=== PATIENT | male | born 1930 | race Caucasian/White ===

== ENCOUNTER 2017-01-27 14:03 | Outpatient (CLI) | payer MEDICARE, OTHER ==
[2016-04-05 09:26] VITALS: BP 160/83
[2017-01-27 14:22] LABS: BASOPHILS % 0.5 (0.0-1.5); EOSINOPHILS % 1.8 % (0.0-6.8); MEAN CORPUSCULAR HEMOGLOBIN 34.9 pg (28.0-34.0); MEAN CORPUSCULAR VOLUME 104.8 fl (80.0-100.0); MONOCYTES % 5.5 % (0.0-11.0)
[2017-01-27 14:48] LABS: eGFR (African) > 60; eGFR (Non-African) > 60
--- NOTE | 2017-01-27 20:32 | Diagnostic Imaging Report ---
SELENA FLOOD~ [facility] [address] [facility] [address] [place] [address]. [id number] ~ ~ ~ ~ Report Submission Date: Jan 27, 2017 3:12:43 PM CDT Patient ~ Study Name: SUSU SANTANA ~ Date: Jan 27, 2017 2:25:09 PM CDT ~ Modality Type: CR Gender: M ~ Description: CHEST : 31 ~ Institution: [facility] Physician: SELENA FLOOD ~ ~ ~ ~ 2 views of the chest History: CXR, ONGOING COUGH, SOA Comparison: July 20, 2016 Cardiomegaly with aortic calcification seen. Left chest wall pacemaker has its single lead terminating in the right ventricle Opacity at the right lung base is new which obscures the right hemidiaphragm. Pulmonary vascular congestion is present There is left basilar atelectasis /infiltrate Degenerative changes are noted at both the shoulders Impression: Cardiomegaly with pulmonary vascular congestion. Aortic calcification. New right basilar opacity suggestive of infiltrate/atelectasis with small right pleural effusion. Recommend followup to resolution. Left basilar atelectasis ~ Electronically signed on Jan 27, 2017 3:12:43 PM CDT by: Neelam WONG
== END 2017-01-27 14:04 ==
LOC: RAD 14:03
PROVIDERS: ATTEND Family Medicine
DX: K92.1 Melena (principal); R05 Cough
CPT/HCPCS: 71020; 80053; 85025

== ENCOUNTER 2017-02-25 14:20 | Outpatient (CLI) | payer MEDICARE, OTHER ==
[2016-04-05 09:26] VITALS: BP 160/83
[2017-02-25 14:37] LABS: eGFR (African) > 60; eGFR (Non-African) > 60
== END 2017-02-25 14:21 ==
LOC: LABRHC 14:20
PROVIDERS: ATTEND Family Medicine
DX: Z51.81 Encounter for therapeutic drug level monitoring (principal)
CPT/HCPCS: 80048

== ENCOUNTER 2017-05-14 18:20 | Emergency (ER) | payer MEDICARE, OTHER ==
[2017-05-14] MEDS ORDERED: 0.9 % SODIUM CHLORIDE 500 ML IV ONE ×2 (18:51→18:56)
--- NOTE | 2017-05-14 18:54 | ED Physician Documentation ---
General Adult - HISTORIAN Historian: patient, spouse - HPI Stated Complaint: low blood pressure Chief Complaint: General Adult Onset: hours Timing: better Severity: mild Further Comments: yes (Pt is an 87 yo male who had a low blood pressure reading at home, BP=92/56. Pt's says that pt had been complaining of weakness. Pt says he feels all right now, though he has been feeling tired.) - ROS CONST: weakness ("tired") EYES/ENT: none CVS/RESP: none GI/: none MS/SKIN/LYMPH: none - PAST HX Past History: other (AMI, cardiac stent, pacemaker, cholecystectomy, anemia, cancer, CHF, COPD, ) - SOCIAL HX Smoking History: non-smoker - FAMILY HX Family History: No - VITAL SIGNS Vital Signs: Vital Signs Temp Pulse Resp BP Pulse Ox 97.4 F L 64 16 108/52 99 05/14/17 18:20 05/14/17 18:20 05/14/17 18:20 05/14/17 18:20 05/14/17 18:20 - REVIEWED ASSESSMENTS Nursing Assessment Reviewed: Yes Vitals Reviewed: Yes <Lodnon George - Last Filed: 05/14/17 19:01> - PAST HX Past History: other Surgeries/Procedures: cholecystectomy, other (pacemaker) - VITAL SIGNS Vital Signs: Vital Signs Temp Pulse Resp BP Pulse Ox 97.4 F L 64 16 108/52 99 05/14/17 18:20 05/14/17 18:20 05/14/17 18:20 05/14/17 18:20 05/14/17 18:20 <Álvaro Cruz - Last Filed: 05/14/17 20:08> - PAST HX Allergies/Adverse Reactions: Allergies Allergy/AdvReac Type Severity Reaction Status Date / Time No Known Allergies Allergy Verified 05/14/17 18:30 Home Medications: Ambulatory Orders Medication Instructions Recorded Alendronate Sodium [Fosamax] 70 mg PO WEEK 01/01/13 Calcium Carb/Vit D3/Minerals 1 each PO TID 01/01/13 [Calcium 600 + D Tablet] Cyanocobalamin (Vitamin B-12) 2,500 mcg SL WEEK 01/01/13 [Vitamin B-12] Doxazosin Mesylate [Cardura Xl] 8 mg PO HS 01/01/13 Ferrous Sulfate [Iron] 325 mg PO DAILY 01/01/13 Folic Acid 1 mg PO DAILY 01/01/13 Methotrexate Sodium [Methotrexate] 4 tab PO WEEK 01/01/13 Pravastatin Sodium 20 mg PO DAILY 01/01/13 Warfarin Sodium [Coumadin] 5 mg PO DIRECTED 01/01/13 Cholestyramine (with Sugar) 4 gm PO BID 05/11/15 [Questran Packet] Losartan Potassium [Cozaar] 50 mg PO DAILY 05/11/15 Progress - Progress Progress: Care transferred to Dr. Cruz at 1900. <London George - Last Filed: 05/14/17 19:01> ED Results Lab/Radiology - Orders Orders: ED Orders Category Date Time Status 0.9 % Sodium Chloride [Normal Saline] 500 ml Med 05/14/17 18:51 Discontinued IV .STK-MED <London George - Last Filed: 05/14/17 19:01> - Orders Orders: ED Orders Category Date Time Status Place IV Lock 1T Care 05/14/17 18:56 Active BNP [NT-proBNP] Stat Lab 05/14/17 19:01 Received CBC/PLATELET/DIFF Routine Lab 05/14/17 19:01 Received CMP Routine Lab 05/14/17 19:01 Received 0.9 % Sodium Chloride [Normal Saline] 500 ml Med 05/14/17 18:51 Discontinued IV .STK-MED 0.9 % Sodium Chloride [Normal Saline] 500 ml Med 05/14/17 18:56 Active IV NOW <Álvaro Cruz - Last Filed: 05/14/17 20:08> General Adult Physical Exam - PHYSICAL EXAM GENERAL APPEARANCE: no distress EENT: pharynx normal NECK: normal inspection, supple RESPIRATORY: no resp distress, chest non-tender, breath sounds normal CVS: reg rate & rhythm, heart sounds normal ABDOMEN: soft, no organomegaly, normal bowel sounds BACK: normal inspection, no CVA tenderness SKIN: warm/dry, normal color EXTREMITIES: non-tender, normal range of motion, no evidence of injury NEURO: oriented X3, motor nml, sensation nml <London George - Last Filed: 05/14/17 19:01> Discharge <London George - Last Filed: 05/14/17 19:01> Decision to Admit: NO Date of Decison to Admit: 05/14/17 Decision Time: 19:36 <Álvaro Cruz - Last Filed: 05/14/17 20:08> Clincal Impression: Hypotension Referrals: Juwan Campos MD [Primary Care Provider] - 2 Days Additional Instructions: Continue with home meds. Continue to monitor blood pressure. If the top number gets into the 80s callprimary care provider or bring to the Emergency room. Condition: Stable Disposition: 01 HOME, SELF-CARE
[2017-05-14 19:24] LABS: eGFR (African) > 60; eGFR (Non-African) > 60
[2017-05-14 19:26] LABS: BASOPHILS % 0.5 (0.0-1.5); EOSINOPHILS % 1.2 % (0.0-6.8); MEAN CORPUSCULAR HEMOGLOBIN 33.5 pg (28.0-34.0); MONOCYTES % 3.2 % (0.0-11.0); NEUTROPHILS # 3.4 # k/uL (1.4-7.7)
[2017-05-14 19:50] VITALS: BP 105/58
== END 2017-05-14 19:45 | disposition home or self-care (01) ==
LOC: ED 18:20
DX: I95.9 Hypotension, unspecified (principal)
CPT/HCPCS: 80053; 83880; 85025; J7060; 96360; 99283; S1016

== ENCOUNTER 2017-05-17 10:29 | Inpatient (IN) | payer MEDICARE, OTHER ==
--- NOTE | 2017-05-17 10:38 | ED Physician Documentation ---
General Adult - HISTORIAN Historian: patient - HPI Stated Complaint: dizziness Chief Complaint: Dizziness (and low back pain ) Onset: days ago (2) Timing: still present Severity: mild Modifying Factors: none noted moving seems to make him dizzy Further Comments: no Last known Well Code/Unknown Code: Unknown - ROS CONST: no problems. denies: fever, chills EYES/ENT: none CVS/RESP: none GI/: none NEURO/PSYCH: dizziness. denies: headache, tingling, numbness - PAST HX Past History: other (skin cancer, hip pain, hypotension, CHF (chronic) bronchitis ) Other History: none Surgeries/Procedures: other (cholecstectomy, pacemaker ) Immunizations: referred to PCP - SOCIAL HX Smoking History: non-smoker Alcohol Use: none Drug Use: none - FAMILY HX Family History: Yes - VITAL SIGNS Vital Signs: Vital Signs Temp Pulse Resp BP Pulse Ox 105/58 05/14/17 19:45 - REVIEWED ASSESSMENTS Nursing Assessment Reviewed: Yes Vitals Reviewed: Yes <Cady Sheth - Last Filed: 05/17/17 12:34> - VITAL SIGNS Vital Signs: Vital Signs Temp Pulse Resp BP Pulse Ox 97.6 F 69 18 111/67 98 05/18/17 07:49 05/18/17 07:49 05/18/17 07:49 05/18/17 07:49 05/18/17 07:49 <Álvaro Cruz - Last Filed: 05/18/17 09:31> - PAST HX Allergies/Adverse Reactions: Allergies Allergy/AdvReac Type Severity Reaction Status Date / Time No Known Allergies Allergy Verified 05/17/17 10:59 Home Medications: Ambulatory Orders Medication Instructions Recorded Acetaminophen [Tylenol] 650 mg PO BID 05/17/17 Alendronate Sodium [Fosamax] 50 mg PO WEEK 05/17/17 Calcium Carb 500/Vit D 200 1 each PO BID 05/17/17 [Caltrate with Vit D] Cholestyramine (with Sugar) 4 gm PO 1119 PRN 05/17/17 [Questran] Cyanocobalamin (Vitamin B-12) 2,500 mcg SL WEEK 05/17/17 [Vitamin B12] Doxazosin Mesylate [Cardura] 8 mg PO DAILY 05/17/17 Ferrous Sulfate [Feosol] 325 mg PO 1100 05/17/17 Folic Acid [Folvite] 1 mg PO DAILY 05/17/17 Furosemide [Lasix] 40 mg PO 14 05/17/17 Furosemide [Lasix] 80 mg PO DAILY 05/17/17 Lactase [Lac-Dose] 2 tab PO BID 05/17/17 Losartan Potassium [Cozaar] 50 mg PO DAILY 05/17/17 Methotrexate Sodium [Rheumatrex] 2.5 mg PO WEEK 05/17/17 Metolazone [Zaroxolyn] 5 mg PO QD 05/17/17 Metoprolol Tartrate [Lopressor] 25 mg PO BID 05/17/17 Omeprazole [Prilosec] 20 mg PO 0700 05/17/17 Potassium Chloride [Klor-Con M20] 20 meq PO DAILY 05/17/17 Pravastatin Sodium [Pravachol] 20 mg PO HS 05/17/17 Tramadol HCl [Ultram] 50 mg PO BID 05/17/17 Warfarin Sodium [Coumadin] 5 mg PO 1800 05/17/17 Progress - Progress Progress: Patient was seen and evaluated by me. I agree with the assessment and plan for this patient. <Álvaro Cruz - Last Filed: 05/18/17 09:31> ED Results Lab/Radiology - Lab Results Lab Results: reviewed Discussed with Patient - Radiology Radiology Impressions: Examination: PA and lateral chest. History: Evaluate lung haskins. Comparison exam: 27 January 2017 Findings: PA lateral chest demonstrates a prominent cardiac silhouette. Mild tortuosity of the thoracic aorta with vascular calcification by the aortic arch. Left-sided cardiac pacemaker. Mild parenchymal fullness involving the right hilum and left lung base. No blunting of the right costophrenic margin. Osseous structures are appropriate for age. Impression: Mild right hilar and left base hazy infiltrates. Electronically signed on May 17, 2017 11:33:01 AM CDT by: Zeferino Sharif <Cady Sheth - Last Filed: 05/17/17 12:34> - Lab Results Lab Results: Lab Results 05/17/17 05/17/17 05/17/17 11:25 11:25 11:25 WBC RBC Hgb Hct MCV MCH MCHC RDW Plt Count Neut % (Auto) Lymph % (Auto) [place] % (Auto) Eos % (Auto) Baso % (Auto) Neut # (Auto) Lymph # (Auto) [place] # (Auto) Eos # (Auto) Baso # (Auto) Reactive Lymphs % Reactive Lymphs # PT 32.1 Seconds H Seconds (9.4-11.6) INR 3.03 H (0.9-1.2) Sodium 144 mmol/L mmol/L (136-145) Potassium 3.7 mmol/L mmol/L (3.5-5.0) Chloride 103 mmol/L mmol/L (98-110) Carbon Dioxide 36 mmol/L H mmol/L (20-32) BUN 39 mg/dL H mg/dL (10-26) Creatinine 1.0 mg/dL mg/dL (0.4-1.5) Estimated Creat Clear 52 Est GFR ( Amer) > 60 (60 - ) Est GFR (Non-Af Amer) > 60 (60 - ) Glucose 104 mg/dL H mg/dL (70-99) Calcium 8.8 mg/dL mg/dL (8.5-10.5) Troponin I < 0.03 ng/mL L ng/mL (0.03-0.06) 05/17/17 11:25 WBC 6.80 K/ul K/ul (4.00-12.00) RBC 3.41 M/ul L M/ul (3.90-5.20) Hgb 11.5 g/dL L g/dL (12.0-18.0) Hct 33.5 % L % (37.0-53.0) MCV 98.4 fl fl (80.0-100.0) MCH 33.6 pg pg (28.0-34.0) MCHC 34.2 g/dL g/dL (30.0-36.0) RDW 14.5 % H % (11.3-14.3) Plt Count 97 K/mm3 L K/mm3 (130-400) Neut % (Auto) 71.2 % % (39.0-79.0) Lymph % (Auto) 21.0 % % (16.0-50.0) [place] % (Auto) 4.0 % % (0.0-11.0) Eos % (Auto) 2.3 % % (0.0-6.8) Baso % (Auto) 0.4 (0.0-1.5) Neut # (Auto) 4.9 # k/uL # k/uL (1.4-7.7) Lymph # (Auto) 1.4 # k/uL # k/uL (0.6-4.0) [place] # (Auto) 0.3 # k/uL # k/uL (0.0-0.9) Eos # (Auto) 0.2 # k/uL # k/uL (0.0-0.6) Baso # (Auto) 0.0 # k/uL # k/uL (0.0-0.5) Reactive Lymphs % 1.0 % % (0.0-5.0) Reactive Lymphs # 0.1 # k/uL # k/uL (0.0-0.8) PT INR Sodium Potassium Chloride Carbon Dioxide BUN Creatinine Estimated Creat Clear Est GFR ( Amer) Est GFR (Non-Af Amer) Glucose Calcium Troponin I - Orders Orders: ED Orders Category Date Time Status IV Started NOW Care 05/17/17 10:55 Completed CHEST P.A.&LAT 2 VIEWS [RAD] Stat Exams 05/17/17 Completed BLOOD CULTURE Stat Lab 05/17/17 12:00 Received BMP [BMP] Routine Lab 05/17/17 11:25 Completed CBC/PLATELET/DIFF Routine Lab 05/17/17 11:25 Completed PT-INR Routine Lab 05/17/17 11:25 Completed TROPONIN I (cTnI) Stat Lab 05/17/17 11:25 Completed 0.9 % Sodium Chloride [Normal Saline] 1,000 ml Med 05/17/17 10:53 Discontinued IV DAILY Azithromycin [Zithromax] 500 mg Med 05/17/17 12:24 Discontinued 0.9 % Sodium Chloride [Sodium Chloride] 250 ml IV NOW cefTRIAXone SODIUM [Rocephin] 1 gm Med 05/17/17 13:00 Active 0.9 % Sodium Chloride [Sodium Chloride] 50 ml IV QD Oxygen Daily Oxygen 05/17/17 12:30 Ordered EKG WITH COMPARISON Stat Ther 05/17/17 Completed <Álvaro Cruz - Last Filed: 05/18/17 09:31> General Adult Physical Exam - PHYSICAL EXAM GENERAL APPEARANCE: no distress EENT: eye inspection normal, ENT inspection normal NECK: normal inspection RESPIRATORY: no resp distress, chest non-tender, breath sounds normal CVS: reg rate & rhythm, heart sounds normal ABDOMEN: soft, no organomegaly, normal bowel sounds SKIN: warm/dry EXTREMITIES: non-tender NEURO: oriented X3 <Cady Sheth - Last Filed: 05/17/17 12:34> Discharge Decision to Admit: [id number] Date of Decison to Admit: 05/17/17 Decision Time: 12:36 <Cady Sheth - Last Filed: 05/17/17 12:34> <Álvaro Cruz - Last Filed: 05/18/17 09:31> Clincal Impression: Pneumonia Qualifiers: Pneumonia type: due to unspecified organism Laterality: left Lung location: lower lobe of lung Qualified Code(s): J18.1 - Lobar pneumonia, unspecified organism Condition: Stable Disposition: 09 ADMITTED INPATIENT
[2017-05-17] MEDS ORDERED: 0.9 % SODIUM CHLORIDE 1,000 ML IV ONE (10:53)
[2017-05-17 11:31] LABS: BASOPHILS % 0.4 (0.0-1.5); EOSINOPHILS % 2.3 % (0.0-6.8); MEAN CORPUSCULAR HEMOGLOBIN 33.6 pg (28.0-34.0); MEAN CORPUSCULAR VOLUME 98.4 fl (80.0-100.0); NEUTROPHILS # 4.9 # k/uL (1.4-7.7)
[2017-05-17 11:46] LABS: eGFR (African) > 60; eGFR (Non-African) > 60
[2017-05-17] MEDS ORDERED: AZITHROMYCIN 500 MG in 0.9 % SODIUM CHLORIDE 250 ML IV ONE (12:24)
[2017-05-17] MEDS ORDERED: WARFARIN SODIUM 5 MG TABLET PO SCH (13:00)
[2017-05-17] MEDS: DOXAZOSIN MESYLATE 2 MG TABLET PO SCH ×2 (14:20→21:08)
[2017-05-17] MEDS: PANTOPRAZOLE SODIUM 40 MG TABLET PO SCH (14:20)
[2017-05-17] MEDS ORDERED: FUROSEMIDE 40 MG TABLET PO ONE (14:35)
[2017-05-17] MEDS ORDERED: SALINE FLUSH 10 ML DISP.SYRIN IVF ONE (16:05)
--- NOTE | 2017-05-17 16:31 | Diagnostic Imaging Report ---
LETA LAI~ [facility] [address] [facility] [address] [place], [place]. [address] ~ ~ ~ ~ Report Submission Date: May 17, 2017 11:33:01 AM CDT Patient ~ Study Name: SUSU SANTANA ~ Date: May 17, 2017 11:05:19 AM CDT ~ Modality Type: CR Gender: M ~ Description: CHEST : 31 ~ Institution: [facility] Physician: LETA LAI ~ ~ ~ ~ Examination: PA and lateral chest. History: Evaluate lung haskins. Comparison exam: 27 January 2017 Findings: PA lateral chest demonstrates a prominent cardiac silhouette. Mild tortuosity of the thoracic aorta with vascular calcification by the aortic arch. Left-sided cardiac pacemaker. Mild parenchymal fullness involving the right hilum and left lung base. No blunting of the right costophrenic margin. Osseous structures are appropriate for age. Impression: Mild right hilar and left base hazy infiltrates. ~ Electronically signed on May 17, 2017 11:33:01 AM CDT by: Zeefrino WONG
[2017-05-17] MEDS: IPRATROPIUM/ALBUTEROL SULFATE 3 ML AMPUL.NEB NEB SCH ×3 (16:32→21:48)
[2017-05-17] MEDS: cefTRIAXone SODIUM 1 GM in 0.9 % SODIUM CHLORIDE 50 ML IV SCH (17:21)
[2017-05-17] MEDS: WARFARIN SODIUM 5 MG TABLET PO SCH (17:22)
[2017-05-17 18:55] VITALS: BMI 21.7
[2017-05-17] MEDS ORDERED: FUROSEMIDE 40 MG TABLET PO SCH (21:00)
[2017-05-17] MEDS: METOPROLOL TARTRATE 50 MG TABLET PO SCH (21:09)
[2017-05-17] MEDS: CITALOPRAM HYDROBROMIDE 20 MG TABLET PO SCH (21:14)
[2017-05-18] MEDS ORDERED: PRAVASTATIN SODIUM 20 MG TABLET ONE (00:47)
[2017-05-18] MEDS ORDERED: LOSARTAN POTASSIUM 50 MG TABLET PO ONE (00:48)
[2017-05-18] MEDS: IPRATROPIUM/ALBUTEROL SULFATE 3 ML AMPUL.NEB NEB SCH ×7 (01:00→23:22)
[2017-05-18] MEDS: FUROSEMIDE 40 MG TABLET PO SCH ×3 (06:21→13:25)
[2017-05-18] MEDS: PANTOPRAZOLE SODIUM 40 MG TABLET PO SCH ×2 (06:21→06:26)
[2017-05-18 07:02] LABS: BASOPHILS % 0.7 (0.0-1.5); EOSINOPHILS % 1.4 % (0.0-6.8); MEAN CORPUSCULAR HEMOGLOBIN 33.5 pg (28.0-34.0); MEAN CORPUSCULAR VOLUME 96.4 fl (80.0-100.0); MONOCYTES % 3.5 % (0.0-11.0); NEUTROPHILS # 4.6 # k/uL (1.4-7.7)
[2017-05-18] MEDS ORDERED: FUROSEMIDE 40 MG TABLET PO SCH (07:14)
[2017-05-18] MEDS: LOSARTAN POTASSIUM 50 MG TABLET PO SCH (07:47)
[2017-05-18] MEDS: METOPROLOL TARTRATE 50 MG TABLET PO SCH ×2 (07:47→20:21)
[2017-05-18] MEDS: PRAVASTATIN SODIUM 20 MG TABLET PO SCH (07:48)
[2017-05-18] MEDS: CITALOPRAM HYDROBROMIDE 20 MG TABLET PO SCH (07:48)
--- NOTE | 2017-05-18 08:24 | History and Physical Report ---
CHIEF COMPLAINT: 1. Hypotension. 2. Generalized weakness. 3. Pneumonia. HISTORY OF PRESENT ILLNESS: This is an 87-year-old male who I actually saw in the office yesterday because of malaise and generally not feeling very well. His laboratory evaluation yesterday was essentially unremarkable. His labs were reviewed from the day previous when he was in the emergency department and they were essentially stable. I did stop his Metolazone yesterday because of his hypotension. He woke up this morning and was very, very hypotensive with a systolic in the 50s. As a result, Sarah, his , called the ambulance and he was brought to the emergency room for an evaluation. There he was noted to have bibasilar infiltrates on a chest x-ray. His blood pressure had actually rebounded into the one-teen's over 60s and that is where they are at this point. His pulse oximetry is 100% on 2 liters. He is on chronic oxygen therapy. His weight has stabilized since yesterday but he is down about 20 pounds in the last couple of months. PAST MEDICAL HISTORY: 1. History of chronic anemia. 2. Cardiomyopathy with an ejection fraction in the 20% to 30% range. 3. Chronic congestive heart failure. 4. Coronary arteriosclerosis with a stent placed several years ago. 5. Chronic hypoxia. 6. Weight loss. 7. Depression. PAST SURGICAL HISTORY: 1. Cholecystectomy. 2. Pacemaker placement. 3. PCI with stent. CURRENT MEDICATIONS: 1. Lasix 40 mg b.i.d. 2. Lactulose 10 mg per 15 mL and 30 mL daily. 3. Prilosec 20 mg daily. 4. Warfarin, which he has been on 7.5 mg. We decreased that to 5 mg, as I suspect his INR is going to go up with antibiotic therapy. This is managed by Dr. Rodriguez for his cardiomyopathy. 5. Tramadol 50 mg p.o. b.i.d. p.r.n. pain. 6. Questran 4 grams p.o. b.i.d. 7. Cozaar 50 mg p.o. daily. 8. Metoprolol 25 mg p.o. b.i.d. 9. Fosamax 70 mg weekly. 10. Calcium with vitamin D 1 p.o. b.i.d. 11. Mervat, although we are going to hold that at this point. 12. Iron sulfate 325 mg p.o. daily. 13. Folic acid 1 mg p.o. daily. 14. Methotrexate 2.5 mg weekly. 15. Pravastatin 20 mg daily. 16. Warfarin ALLERGIES: No known drug allergies. SOCIAL HISTORY: He is to his second , Sarah, and has been since 1975. He is retired. He is a [place] [employer] . He is no longer smoking and has not smoked for several years. No significant alcohol consumption noted. FAMILY HISTORY: Noncontributory. REVIEW OF SYSTEMS: Notable for fatigue, malaise, generalized depression. His says he has been spending most of his time sitting and not really getting up and doing very much. He says he has not had any chest pain but did have some abdominal pain early today whenever he was hypotensive. He has not had any documented fevers but has had chills and had significant difficulty keeping warm. He has had some loose stools. He states that soon after he eats, he has to have a bowel movement. He has not had any significant pedal edema. He does have orthopnea and dyspnea on exertion. PHYSICAL EXAMINATION: General: This is a very pleasant, nearly cachetic-appearing 87-year-old male. Vital Signs: His vital signs show him to have a blood pressure most recently of 113/59, temperature is 98.3, pulse oximetry is 100% on 2 liters, pulse rate is 68. He is in a paced rhythm. This is a very pleasant but tired-appearing 87 -year-old male. HEENT: Shows his head to be normocephalic and atraumatic. His mucous membranes are moist. He does have dentures in place. = Neck: No carotid bruits. No thyroid masses. Chest: Pacemaker/defibrillator is in place in left upper chest. Lungs: He does have some hyperexpansion of his lung haskins. Decreased air movement is noted. He has a few crackles at the bases bilaterally. Heart: Heart sounds are distant, as are his lung sounds. Abdomen: Soft. Cannot auscultate a bruit. He is a little bit tender in the epigastrium, otherwise, a benign abdominal examination. Extremities: Show no edema today. Heels are intact. Easily palpable dorsalis pedis and posterior tibial pulses are noted. DIAGNOSTIC STUDIES: A chest x-ray shows right hilar and left base infiltrates, as well as cardiomegaly. A pacemaker is also noted. His EKG shows a paced rhythm with a wide QRS complex precluding examination for ischemia. Laboratory shows a negative troponin. His white count is 6.8, hemoglobin 11.5, which is stable for him, hematocrit 33.5, platelets 97,000, also stable for him. INR was 3.03. Chemistry shows a sodium of 144, potassium 3.7, chloride 103, BUN 39, creatinine 1.0, down a little bit from his last check, glucose 104. Troponin was less than 0.03. ASSESSMENT: 1. Hypertension. 2. Bilateral pneumonia. 3. Congestive heart failure. 4. Chronic anemia. 5. Weight loss. 6. Depression. 7. Atherosclerotic coronary vascular disease. PLAN: 1. He is admitted. 2. He is on IV Rocephin and azithromycin. 3. Hopefully, we are trying to get him up at least in a chair. He likely will need a skilled stay after this acute stay. He has certainly failed outpatient treatment at this time with 2 ER visits and 1 clinic visit in the last 4 days. MARVIN
--- NOTE | 2017-05-18 08:58 | Inpatient Progress Note ---
Subjective - Required Recertification Statement I anticipate X number of days because-include discharge plan: 3 - Review of Systems Events since last encounter: Jerome is still feeling pretty weak. His labs are stable. He at breakfast this morning and is not nauseated. He has not been up and ambulated. General: Chills, Appetite (decreased) HEENT: Denies: Head Aches Pulmonary: Dyspnea, Cough Cardiovascular: Denies: Chest Pain Gastrointestinal: Nausea. Denies: Vomiting Genitourinary: Denies: Dysuria Musculoskeletal: Denies: Neck Pain Neurological: Weakness. Denies: Change in Speech, Confusion Objective - Exam Vitals and I&O: Vital Signs Temp 97.6 F 05/18/17 07:49 Pulse 69 05/18/17 07:49 Resp 18 05/18/17 07:49 BP 111/67 05/18/17 07:49 Pulse Ox 98 05/18/17 07:49 Intake & Output 05/17/17 05/17/17 05/18/17 11:59 23:59 11:59 Intake Total 160 Output Total 800 Balance 160 -800 Weight 68.492 kg Intake: IV 110 Left Hand 110 Oral 50 Output: Urine 800 Other: Voiding Method Urinal General: Alert, Oriented to Person, Oriented to Place, Oriented to Time, Cooperative, No acute distress HEENT: Atraumatic, PERRLA, EOMI Neck: Supple Lungs: Prolonged Expiration, Decreased Air Movement Cardiovascular: Regular rate Abdomen: Normal bowel sounds, Soft, No tenderness Extremities: No clubbing, No cyanosis, No edema Skin: Normal, [place] Neurological: Normal speech, Generalized Weakness Psych/Mental Status: Mental status NL - Results Results: Laboratory Results WBC 6.70 K/ul (4.00-12.00) 05/18/17 06:45 RBC 3.34 M/ul (3.90-5.20) L 05/18/17 06:45 Hgb 11.2 g/dL (12.0-18.0) L 05/18/17 06:45 Hct 32.1 % (37.0-53.0) L 05/18/17 06:45 MCV 96.4 fl (80.0-100.0) 05/18/17 06:45 MCH 33.5 pg (28.0-34.0) 05/18/17 06:45 MCHC 34.7 g/dL (30.0-36.0) 05/18/17 06:45 RDW 14.7 % (11.3-14.3) H 05/18/17 06:45 Plt Count 103 K/mm3 (130-400) L 05/18/17 06:45 Neut % (Auto) 68.3 % (39.0-79.0) 05/18/17 06:45 Lymph % (Auto) 24.6 % (16.0-50.0) 05/18/17 06:45 [place] % (Auto) 3.5 % (0.0-11.0) 05/18/17 06:45 Eos % (Auto) 1.4 % (0.0-6.8) 05/18/17 06:45 Baso % (Auto) 0.7 (0.0-1.5) 05/18/17 06:45 Neut # (Auto) 4.6 # k/uL (1.4-7.7) 05/18/17 06:45 Lymph # (Auto) 1.6 # k/uL (0.6-4.0) 05/18/17 06:45 [place] # (Auto) 0.2 # k/uL (0.0-0.9) 05/18/17 06:45 Eos # (Auto) 0.1 # k/uL (0.0-0.6) 05/18/17 06:45 Baso # (Auto) 0.0 # k/uL (0.0-0.5) 05/18/17 06:45 Reactive Lymphs % 1.4 % (0.0-5.0) 05/18/17 06:45 Reactive Lymphs # 0.1 # k/uL (0.0-0.8) 05/18/17 06:45 PT 32.1 Seconds (9.4-11.6) H 05/17/17 11:25 INR 3.03 (0.9-1.2) H 05/17/17 11:25 Sodium 144 mmol/L (136-145) 05/17/17 11:25 Potassium 3.7 mmol/L (3.5-5.0) 05/17/17 11:25 Chloride 103 mmol/L (98-110) 05/17/17 11:25 Carbon Dioxide 36 mmol/L (20-32) H 05/17/17 11:25 BUN 39 mg/dL (10-26) H 05/17/17 11:25 Creatinine 1.0 mg/dL (0.4-1.5) 05/17/17 11:25 Estimated Creat Clear 52 05/17/17 11:25 Est GFR ( Amer) > 60 (60-) 05/17/17 11:25 Est GFR (Non-Af Amer) > 60 (60-) 05/17/17 11:25 Glucose 104 mg/dL (70-99) H 05/17/17 11:25 Calcium 8.8 mg/dL (8.5-10.5) 05/17/17 11:25 Troponin I < 0.03 ng/mL (0.03-0.06) L 05/17/17 11:25 Assessment/Plan - Assessment/Plan (1) Congestive heart failure Status: Acute Current Visit: Yes Qualifiers: Congestive heart failure type: systolic Congestive heart failure chronicity : chronic Qualified Code(s): I50.22 - Chronic systolic (congestive) heart failure Assessment: Continue curent medications (2) Anemia Status: Acute Current Visit: Yes Qualifiers: Anemia type: iron deficiency Assessment: Follow CBC (3) Pneumonia Status: Acute Current Visit: Yes Qualifiers: Pneumonia type: due to unspecified organism Laterality: left Lung location: lower lobe of lung Qualified Code(s): J18.1 - Lobar pneumonia, unspecified organism Assessment: Check CXR today I did not keep him on the macrolide due to his warfarin therapy I don't think he is a candidate for Levofloxacin due to age (4) Hypotension Status: Acute Current Visit: No Assessment: Improved
[2017-05-18] MEDS ORDERED: ACETAMINOPHEN 325 MG TABLET PO PRN (09:00)
[2017-05-18] MEDS: FOLIC ACID 1 MG TABLET PO SCH (09:41)
[2017-05-18] MEDS: POTASSIUM CHLORIDE 20 MEQ TABLET.ER PO SCH (09:41)
[2017-05-18] MEDS: FERROUS SULFATE 325 MG TABLET PO SCH ×3 (09:41→18:41)
[2017-05-18] MEDS ORDERED: SALINE FLUSH 10 ML DISP.SYRIN IVF ONE (13:20)
[2017-05-18] MEDS: cefTRIAXone SODIUM 1 GM in 0.9 % SODIUM CHLORIDE 50 ML IV SCH (13:25)
[2017-05-18] MEDS: WARFARIN SODIUM 5 MG TABLET PO SCH (17:33)
--- NOTE | 2017-05-18 18:36 | Diagnostic Imaging Report ---
[facility] [address] [facility] [address] [address] Report Submission Date: May 18, 2017 9:45:31 AM CDT Patient Study Name: SUSU SANTANA Date: May 18, 2017 9:20:12 AM CDT Modality Type: CR Gender: M Description: CHEST : 31 Institution: [facility] Physician: [facility] Pa and lateral chest Clinical history :short of breath cough pneumonia Comparison May 17, 2017 Technique pa and lateral upright Findings: The cardiomegaly and mild pulmonary vascular congestion or gout the same. Pacemaker is not significantly changed. The aortic arch tortuosity and calcification again noted. Lung field hyperinflation is similar. Increased posterior costophrenic angle blunting is present. Thoracic spondylosis is present. Impression: Increased costophrenic angle blunting of the posterior costophrenic angles Cardiomegaly and pulmonary vascular congestion are the same Unchanged tortuous calcified aortic arch and pacemaker Thoracic spondylosis Electronically signed on May 18, 2017 9:45:31 AM CDT by: Matthew WONG
[2017-05-18] MEDS: DOXAZOSIN MESYLATE 2 MG TABLET PO SCH (20:21)
[2017-05-19] MEDS: IPRATROPIUM/ALBUTEROL SULFATE 3 ML AMPUL.NEB NEB SCH ×6 (01:18→21:17)
[2017-05-19] MEDS: PANTOPRAZOLE SODIUM 40 MG TABLET PO SCH (05:34)
[2017-05-19] MEDS: FUROSEMIDE 40 MG TABLET PO SCH ×2 (05:34→14:07)
[2017-05-19] MEDS: POTASSIUM CHLORIDE 20 MEQ TABLET.ER PO SCH (09:20)
[2017-05-19] MEDS: METOPROLOL TARTRATE 50 MG TABLET PO SCH ×2 (09:21→21:15)
[2017-05-19] MEDS: PRAVASTATIN SODIUM 20 MG TABLET PO SCH (09:22)
[2017-05-19] MEDS: CITALOPRAM HYDROBROMIDE 20 MG TABLET PO SCH (09:23)
[2017-05-19] MEDS: LOSARTAN POTASSIUM 50 MG TABLET PO SCH (09:24)
[2017-05-19] MEDS: FOLIC ACID 1 MG TABLET PO SCH (09:24)
[2017-05-19] MEDS: FERROUS SULFATE 325 MG TABLET PO SCH ×2 (10:55→18:09)
[2017-05-19] MEDS ORDERED: SALINE FLUSH 10 ML DISP.SYRIN IVF ONE (11:21)
[2017-05-19] MEDS: cefTRIAXone SODIUM 1 GM in 0.9 % SODIUM CHLORIDE 50 ML IV SCH (13:13)
[2017-05-19] MEDS: WARFARIN SODIUM 5 MG TABLET PO SCH (17:30)
[2017-05-19] MEDS: DOXAZOSIN MESYLATE 2 MG TABLET PO SCH (21:15)
[2017-05-20] MEDS: IPRATROPIUM/ALBUTEROL SULFATE 3 ML AMPUL.NEB NEB SCH ×4 (02:26→13:48)
[2017-05-20] MEDS: PANTOPRAZOLE SODIUM 40 MG TABLET PO SCH (05:56)
[2017-05-20] MEDS: FUROSEMIDE 40 MG TABLET PO SCH (05:56)
[2017-05-20] MEDS: CITALOPRAM HYDROBROMIDE 20 MG TABLET PO SCH (09:08)
[2017-05-20] MEDS: LOSARTAN POTASSIUM 50 MG TABLET PO SCH (09:09)
[2017-05-20] MEDS: FOLIC ACID 1 MG TABLET PO SCH (09:10)
[2017-05-20] MEDS: POTASSIUM CHLORIDE 20 MEQ TABLET.ER PO SCH (09:11)
[2017-05-20] MEDS: METOPROLOL TARTRATE 50 MG TABLET PO SCH (09:12)
[2017-05-20] MEDS: PRAVASTATIN SODIUM 20 MG TABLET PO SCH (09:13)
[2017-05-20] MEDS: FERROUS SULFATE 325 MG TABLET PO SCH (10:24)
[2017-05-20] MEDS ORDERED: SALINE FLUSH 10 ML DISP.SYRIN IVF ONE (13:02)
[2017-05-20] MEDS: cefTRIAXone SODIUM 1 GM in 0.9 % SODIUM CHLORIDE 50 ML IV SCH (13:10)
[2017-05-20 14:22] VITALS: BP 110/52
--- NOTE | 2017-05-20 15:56 | Discharge Summary ---
DATE OF ADMISSION: May 17, 2017 DATE OF DISCHARGE: May 20, 2017 DIAGNOSES ON THIS HOSPITALIZATION: 1. Anemia. 2. Congestive heart failure. 3. Pneumonia. 4. Hypotension. 5. Chronic atrial fibrillation. 6. Weight loss. SUMMARIZATION OF ADMISSION HISTORY AND PHYSICAL: This is an 87-year-old male who presented to the emergency department twice the week before admission with a complaint of having generally been feeling very weak. I had seen him the day before admission and stopped his metolazone because he was somewhat hypotensive. He came back to the emergency room the next day still hypotensive and generally not feeling very well. A chest x-ray did show him to have bilateral pneumonia. HOSPITAL COURSE: He was admitted and started on IV Rocephin. I did not start a macrolide because of his Coumadin therapy. He continued to be fairly weak but he was afebrile. He was discharged back to the assisted then on the following medications. CONDITION ON DISCHARGE: He is discharged to the assisted in moderately improved condition. MEDICATIONS ON DISCHARGE: 1. Lasix 40 mg p.o. b.i.d. 2. Lactulose 10 mEq p.o. b.i.d. 3. Prilosec 20 mg daily. 4. Warfarin 5 mg daily. 5. Questran 4 mg p.o. b.i.d. 6. Metoprolol 25 mg p.o. b.i.d. 7. Fosamax 70 mg weekly. 8. Calcium with vitamin D 1 p.o. b.i.d. 9. Cardura 8 mg p.o. at bedtime. 10. Ferrous sulfate 325 mg p.o. b.i.d. 11. Folic acid 1 mg p.o. daily. 12. Methotrexate 2.5 mg weekly. 13. Pravastatin 20 mg daily. DISCHARGE INSTRUCTIONS: I will follow him up at the assisted. MARVIN
[2017-05-20] MEDS ORDERED: METOPROLOL TARTRATE 25 MG TABLET PO SCH (21:00)
--- NOTE | 2017-05-21 12:26 | Inpatient Progress Note ---
Subjective - Required Recertification Statement I anticipate X number of days because-include discharge plan: 1 day - Review of Systems Events since last encounter: Patient stated he seemed to be doing better at this time. Patient is not having a productive cough. Patient denies any breathing difficulties. Patient denies any chest pain. Patient continues to be weak and having some difficulties with ambulation. General: Denies: Chills Cardiovascular: Denies: Chest Pain, Palpitations Gastrointestinal: Denies: Nausea, Vomiting, Abdominal Pain Objective - Exam Vitals and I&O: Vital Signs Temp 97.8 F 05/20/17 14:00 Pulse 74 05/20/17 14:00 Resp 18 05/20/17 14:00 BP 110/52 05/20/17 14:00 Pulse Ox 94 05/20/17 14:00 Intake & Output 05/20/17 05/21/17 05/21/17 23:59 11:59 23:59 Intake Total 220 Balance 220 Weight 68.492 kg Intake: Oral 220 Other: # Voids 4 General: Alert, Oriented to Person, Oriented to Place, Oriented to Time, Cooperative, No acute distress Lungs: Clear to auscultation, Normal air movement, Speaks full Sentences. No: Wheezes, Rales, Rhonchi Cardiovascular: Regular rate, Normal S1, Normal S2 Abdomen: Normal bowel sounds Extremities: No clubbing, No cyanosis, Normal pulses Skin: Normal, [place], Warm, Dry Neurological: Normal speech, Strength Equal Bilat, Normal tone. No: Normal gait - Results Results: Laboratory Results WBC 6.70 K/ul (4.00-12.00) 05/18/17 06:45 RBC 3.34 M/ul (3.90-5.20) L 05/18/17 06:45 Hgb 11.2 g/dL (12.0-18.0) L 05/18/17 06:45 Hct 32.1 % (37.0-53.0) L 05/18/17 06:45 MCV 96.4 fl (80.0-100.0) 05/18/17 06:45 MCH 33.5 pg (28.0-34.0) 05/18/17 06:45 MCHC 34.7 g/dL (30.0-36.0) 05/18/17 06:45 RDW 14.7 % (11.3-14.3) H 05/18/17 06:45 Plt Count 103 K/mm3 (130-400) L 05/18/17 06:45 Neut % (Auto) 68.3 % (39.0-79.0) 05/18/17 06:45 Lymph % (Auto) 24.6 % (16.0-50.0) 05/18/17 06:45 [place] % (Auto) 3.5 % (0.0-11.0) 05/18/17 06:45 Eos % (Auto) 1.4 % (0.0-6.8) 05/18/17 06:45 Baso % (Auto) 0.7 (0.0-1.5) 05/18/17 06:45 Neut # (Auto) 4.6 # k/uL (1.4-7.7) 05/18/17 06:45 Lymph # (Auto) 1.6 # k/uL (0.6-4.0) 05/18/17 06:45 [place] # (Auto) 0.2 # k/uL (0.0-0.9) 05/18/17 06:45 Eos # (Auto) 0.1 # k/uL (0.0-0.6) 05/18/17 06:45 Baso # (Auto) 0.0 # k/uL (0.0-0.5) 05/18/17 06:45 Reactive Lymphs % 1.4 % (0.0-5.0) 05/18/17 06:45 Reactive Lymphs # 0.1 # k/uL (0.0-0.8) 05/18/17 06:45 PT 25.4 Seconds (9.4-11.6) H 05/19/17 11:45 INR 2.40 (0.9-1.2) H 05/19/17 11:45 Sodium 144 mmol/L (136-145) 05/17/17 11:25 Potassium 3.7 mmol/L (3.5-5.0) 05/17/17 11:25 Chloride 103 mmol/L (98-110) 05/17/17 11:25 Carbon Dioxide 36 mmol/L (20-32) H 05/17/17 11:25 BUN 39 mg/dL (10-26) H 05/17/17 11:25 Creatinine 1.0 mg/dL (0.4-1.5) 05/17/17 11:25 Estimated Creat Clear 52 05/17/17 11:25 Est GFR ( Amer) > 60 (60-) 05/17/17 11:25 Est GFR (Non-Af Amer) > 60 (60-) 05/17/17 11:25 Glucose 104 mg/dL (70-99) H 05/17/17 11:25 Calcium 8.8 mg/dL (8.5-10.5) 05/17/17 11:25 Troponin I < 0.03 ng/mL (0.03-0.06) L 05/17/17 11:25 Assessment/Plan - Assessment/Plan (1) Pneumonia Status: Acute Qualifiers: Pneumonia type: due to unspecified organism Laterality: left Lung location: lower lobe of lung Qualified Code(s): J18.1 - Lobar pneumonia, unspecified organism Assessment: improved (2) Gait disturbance Status: Acute (3) Congestive heart failure Status: Chronic Qualifiers: Congestive heart failure type: systolic Congestive heart failure chronicity : chronic Qualified Code(s): I50.22 - Chronic systolic (congestive) heart failure Assessment: stable
== END 2017-05-20 14:20 | DRG 291 ==
LOC: ED 10:29 → SOUTH 12:45
PROVIDERS: ADMIT Family Medicine; ATTEND Family Medicine
DX: I50.20 Unspecified systolic (congestive) heart failure (principal); J18.9 Pneumonia, unspecified organism; D64.9 Anemia, unspecified; I95.9 Hypotension, unspecified; I48.91 Unspecified atrial fibrillation; R63.4 Abnormal weight loss
CPT/HCPCS: 36415; 71020; 80048; 84484; 85025; 85610; 87040; 93005; 97116; 97161; 97165; 97530; 97535; A9270; J0456; J0696; J7050; 99223; 99233; 99238; 99283; 99284; S1016

== ENCOUNTER 2017-05-28 10:51 | Emergency (ER) | payer MEDICARE, OTHER ==
--- NOTE | 2017-05-28 11:07 | ED Physician Documentation ---
General Adult - HISTORIAN Historian: patient, other ([facility] staff) - HPI Stated Complaint: weakness Chief Complaint: Weakness Onset: days ago Timing: still present Further Comments: yes (Patient mame was admitted to hospital for treatment of pneumonia. Dwaine transferred to [facility] for further care. Since admision there patient has not seemed to improve. Appettite remains poor, patient is not responding well. Patient has not had any fevero ro chills that zi can find documented. Has a chest x-ray on the which showed continual right perihilar infiltrate verus atelectasis. Patient has been on furosemide 80mg q day. Not sure of when last BM was.) - ROS CONST: recent illness (pneumonia). denies: fever CVS/RESP: denies: chest pain, shortness of breath GI/: abdominal pain. denies: problems urinating, vomiting, nausea, diarrhea - PAST HX Past History: COPD, CHF (with cardiomyopathy), hypertension, other (CAD, ) Other History: other (skin cancer, chronic hip pain, depression,) Allergies/Adverse Reactions: Allergies Allergy/AdvReac Type Severity Reaction Status Date / Time No Known Allergies Allergy Verified 05/17/17 10:59 Home Medications: Ambulatory Orders Medication Instructions Recorded Alendronate Sodium [Fosamax] 70 mg PO WEEK 05/17/17 Calcium Carb 500/Vit D 200 1 each PO BID 05/17/17 [Caltrate with Vit D] Cholestyramine (with Sugar) 4 gm PO 1119 PRN 05/17/17 [Questran] Doxazosin Mesylate [Cardura] 8 mg PO DAILY 05/17/17 Ferrous Sulfate [Feosol] 325 mg PO BID 05/17/17 Folic Acid [Folvite] 1 mg PO DAILY 05/17/17 Furosemide [Lasix] 80 mg PO DAILY 05/17/17 Lactase [Lac-Dose] 2 tab PO BID 05/17/17 Methotrexate Sodium [Rheumatrex] 2.5 mg PO WEEK 05/17/17 Metoprolol Tartrate [Lopressor] 25 mg PO BID 05/17/17 Omeprazole [Prilosec] 20 mg PO 0700 05/17/17 Pravastatin Sodium [Pravachol] 20 mg PO HS 05/17/17 Warfarin Sodium [Coumadin] 5 mg PO 1800 05/17/17 - SOCIAL HX Smoking History: non-smoker Alcohol Use: none Drug Use: none - FAMILY HX Family History: No - VITAL SIGNS Vital Signs: Vital Signs Temp Pulse Resp BP Pulse Ox 110/52 05/20/17 14:00 - REVIEWED ASSESSMENTS Nursing Assessment Reviewed: Yes Vitals Reviewed: Yes Progress - Results/Orders Results/Orders: 11:54 Patient remain stable General Adult Physical Exam - PHYSICAL EXAM GENERAL APPEARANCE: no distress NECK: normal inspection, thyroid normal, supple. No: lymphadenopathy RESPIRATORY: no resp distress, chest non-tender, rales (right lower lobe) CVS: no JVD, irregularly irregular rhy, murmur ABDOMEN: soft, no organomegaly, normal bowel sounds, no abdominal bruit, no distension, tenderness (mild in the RLQ). No: mass BACK: normal inspection SKIN: warm/dry, normal color EXTREMITIES: No: edema NEURO: CN's nml as tested, motor nml, sensation nml. No: mood/affect nml ( patient has a flat affect), cognition normal Discharge Clincal Impression: Pneumonia Qualifiers: Pneumonia type: due to unspecified organism Laterality: right Lung location: middle lobe of lung Qualified Code(s): J18.1 - Lobar pneumonia, unspecified organism Congestive heart failure Qualifiers: Congestive heart failure type: systolic Congestive heart failure chronicity: chronic Qualified Code(s): I50.22 - Chronic systolic (congestive) heart failure Depression Qualifiers: Depression Type: major depressive disorder Major depression recurrence: single episode Active/Remission status: currently active Major depression episode severity: mild Qualified Code(s): F32.0 - Major depressive disorder, single episode, mild Referrals: Juwan Campos MD [Primary Care Provider] - 2 Days Additional Instructions: After speaking with Dr Campos I will switch patients antibiotic to Levaquin 500mg daily for seven days. Will continue with other current medications. Family has been advised. Patient encouraged to try to increase his oral intake. Continue to monitor labs and vital signs. Condition: Stable Disposition: [address] [place] [address] Decision to Admit: NO Date of Decison to Admit: 05/28/17 Decision Time: 12:50
[2017-05-28] MEDS ORDERED: 0.9 % SODIUM CHLORIDE 1,000 ML IV SCH (11:30)
[2017-05-28 11:33] LABS: BASOPHILS % 0.3 (0.0-1.5); EOSINOPHILS % 0.9 % (0.0-6.8); MEAN CORPUSCULAR HEMOGLOBIN 33.3 pg (28.0-34.0); MEAN CORPUSCULAR VOLUME 100.9 fl (80.0-100.0); MONOCYTES % 3.9 % (0.0-11.0); NEUTROPHILS # 6.2 # k/uL (1.4-7.7)
[2017-05-28 11:34] LABS: eGFR (African) > 60; eGFR (Non-African) > 60
[2017-05-28 13:22] VITALS: BP 105/71
--- NOTE | 2017-05-28 18:54 | Diagnostic Imaging Report ---
SELENA FLOOD [facility] [address] [facility].[address] [address] Report Submission Date: May 28, 2017 12:21:38 PM CDT Patient Study Name: SUSU SANTANA Date: May 28, 2017 11:50:10 AM CDT Modality Type: CR Gender: M Description: ABDOMEN : 32 Institution: [facility] Physician: SELENA FLOOD Clinical history: Abdominal pain Technique ap supine radiograph of the abdomen Findings: The bowel gas pattern is nonspecific. There is extensive vascular calcification. Lumbar spondylosis is present. Hip degenerative arthritis is present. No abdominal masses seen. The lung bases are clear. Surgical clips of cholecystectomy are present in the right upper quadrant. Impression: Nonspecific bowel gas pattern Extensive vascular calcification. Lumbar spondylosis and hip degenerative arthritis Consider CT for further evaluation Electronically signed on May 28, 2017 12:21:38 PM CDT by: Matthew WONG
--- NOTE | 2017-05-28 18:55 | Diagnostic Imaging Report ---
SELENA FLOOD [facility] [address] [facility].[address] [address] Report Submission Date: May 28, 2017 12:19:52 PM CDT Patient Study Name: SUSU SANTANA Date: May 28, 2017 11:38:27 AM CDT Modality Type: CR Gender: M Description: CHEST : 31 Institution: [facility] Physician: SELENA FLOOD Ap portable upright radiographs of the chest Clinical history: Shortness of breath Comparison: 10 days earlier Technique: anterior /posterior portable upright Findings: The lung haskins are clear. The cardiomegaly pulmonary vascular congestion and pacemaker are stable. The aortic arch is calcified.. Arthritic changes are present at the shoulders and air spondylosis of the spine. Dextroscoliosis is present. No pneumothorax or pleural effusion is seen. Impression: No significant change from the previous portable chest radiograph Electronically signed on May 28, 2017 12:19:52 PM CDT by: Matthew WONG
== END 2017-05-28 13:20 ==
LOC: ED 10:51
DX: J18.1 Lobar pneumonia, unspecified organism (principal); I50.22 Chronic systolic (congestive) heart failure; F32.0 Major depressive disorder, single episode, mild
CPT/HCPCS: 71010; 74000; 80053; 83880; 84484; 85025; 99284

== ENCOUNTER 2017-05-31 15:05 | Observation (INO) | payer MEDICARE, OTHER ==
[2017-05-31 15:28] LABS: BASOPHILS % 0.2 (0.0-1.5); EOSINOPHILS % 0.4 % (0.0-6.8); MEAN CORPUSCULAR HEMOGLOBIN 33.6 pg (28.0-34.0); MEAN CORPUSCULAR VOLUME 95.9 fl (80.0-100.0); NEUTROPHILS # 5.3 # k/uL (1.4-7.7)
--- NOTE | 2017-05-31 15:42 | ED Physician Documentation ---
General Adult - HISTORIAN Historian: spouse, child - HPI Stated Complaint: unresponsive Chief Complaint: General Adult Onset: hours (6) Timing: still present Severity: mild Modifying Factors: none Context: none Quality: none Location: none Further Comments: yes (per he was awake last night and was alert and oriented and he was then not responsive today) Last known Well Date: 05/30/17 Last Known Well Time: 16:00 Last known Well Code/Unknown Code: Unknown - ROS CONST: denies: fever, sweating, recent illness EYES/ENT: other (unknown he is not responsive ) CVS/RESP: other (unresponsive ) GI/: other (incontinent ) MS/SKIN/LYMPH: other ([place] ) NEURO/PSYCH: other ([place] ) - PAST HX Past History: other (CHF, COPD, CAD, Depression, hypotension, pneumonia history , weakness, ) Surgeries/Procedures: other (small bowel obstruction, afib history, ) Immunizations: referred to PCP Allergies/Adverse Reactions: Allergies Allergy/AdvReac Type Severity Reaction Status Date / Time No Known Allergies Allergy Verified 05/31/17 15:39 Home Medications: Ambulatory Orders Medication Instructions Recorded Alendronate Sodium [Fosamax] 70 mg PO WEEK 05/17/17 Calcium Carb 500/Vit D 200 1 each PO BID 05/17/17 [Caltrate with Vit D] Cholestyramine (with Sugar) 4 gm PO 1119 PRN 05/17/17 [Questran] Doxazosin Mesylate [Cardura] 8 mg PO DAILY 05/17/17 Ferrous Sulfate [Feosol] 325 mg PO BID 05/17/17 Folic Acid [Folvite] 1 mg PO DAILY 05/17/17 Furosemide [Lasix] 80 mg PO DAILY 05/17/17 Lactase [Lac-Dose] 2 tab PO BID 05/17/17 Methotrexate Sodium [Rheumatrex] 2.5 mg PO WEEK 05/17/17 Metoprolol Tartrate [Lopressor] 25 mg PO BID 05/17/17 Omeprazole [Prilosec] 20 mg PO 0700 05/17/17 Pravastatin Sodium [Pravachol] 20 mg PO HS 05/17/17 Warfarin Sodium [Coumadin] 5 mg PO 1800 05/17/17 - SOCIAL HX Smoking History: non-smoker Alcohol Use: none Drug Use: none - FAMILY HX Family History: No - VITAL SIGNS Vital Signs: Vital Signs Temp Pulse Resp BP Pulse Ox 98.7 F 69 20 127/60 100 05/31/17 15:06 05/31/17 15:06 05/31/17 15:06 05/31/17 15:06 05/31/17 15:06 - REVIEWED ASSESSMENTS Nursing Assessment Reviewed: Yes Vitals Reviewed: Yes ED Results Lab/Radiology - Lab Results Lab Results: Lab Results 05/31/17 15:20 WBC 7.42 K/ul K/ul (4.00-12.00) RBC 3.24 M/ul L M/ul (3.90-5.20) Hgb 10.9 g/dL L g/dL (12.0-18.0) Hct 31.1 % L % (37.0-53.0) MCV 95.9 fl fl (80.0-100.0) MCH 33.6 pg pg (28.0-34.0) MCHC 35.1 g/dL g/dL (30.0-36.0) RDW 14.2 % % (11.3-14.3) Plt Count 139 K/mm3 K/mm3 (130-400) Neut % (Auto) 71.1 % % (39.0-79.0) Lymph % (Auto) 21.4 % % (16.0-50.0) [place] % (Auto) 5.0 % % (0.0-11.0) Eos % (Auto) 0.4 % % (0.0-6.8) Baso % (Auto) 0.2 (0.0-1.5) Neut # (Auto) 5.3 # k/uL # k/uL (1.4-7.7) Lymph # (Auto) 1.6 # k/uL # k/uL (0.6-4.0) [place] # (Auto) 0.4 # k/uL # k/uL (0.0-0.9) Eos # (Auto) 0.0 # k/uL # k/uL (0.0-0.6) Baso # (Auto) 0.0 # k/uL # k/uL (0.0-0.5) Reactive Lymphs % 1.9 % % (0.0-5.0) Reactive Lymphs # 0.1 # k/uL # k/uL (0.0-0.8) - Orders Orders: ED Orders Category Date Time Status CHEST 1 VIEW [RAD] Stat Exams 05/31/17 Ordered CHEST P.A.&LAT 2 VIEWS [RAD] Stat Exams 05/31/[address] BRAIN W/O CONTRAST Stat Exams 05/31/17 Ordered CBC/PLATELET/DIFF Routine Lab 05/31/17 15:20 Completed CMP Routine Lab 05/31/17 15:20 Received CREATINE KINASE Routine Lab 05/31/17 15:20 Received PT-INR Routine Lab 05/31/17 15:20 Received PTT Routine Lab 05/31/17 15:20 Received Lactated Ringers [Ringers, Lactated] 1,000 ml Med 05/31/17 15:15 Ordered IV Q10H Oxygen Daily Oxygen 05/31/17 15:15 Ordered EKG WITH COMPARISON Stat Ther 05/31/17 Ordered General Adult Physical Exam - PHYSICAL EXAM GENERAL APPEARANCE: no distress EENT: other (pupils minimally responsive ) NECK: normal inspection RESPIRATORY: other (shallow breathing ) CVS: heart sounds normal ABDOMEN: soft, no distension, other (he does show visable signs of pain with right lower quad palpation ) SKIN: warm/dry EXTREMITIES: non-tender NEURO: mood/affect nml, speech/cognition abnml, sensory/motor deficit Discharge Clincal Impression: Altered awareness, transient Condition: Stable Disposition: 09 ADMITTED INPATIENT Decision to Admit: [id number] Date of Decison to Admit: 05/31/17 Decision Time: 16:56
[2017-05-31 15:43] LABS: eGFR (African) > 60; eGFR (Non-African) > 60
[2017-05-31] MEDS ORDERED: IPRATROPIUM/ALBUTEROL SULFATE 3 ML AMPUL.NEB NEB PRN (16:38)
--- NOTE | 2017-05-31 16:41 | Diagnostic Imaging Report ---
[facility] [address] [facility].[address] [place], [place]. [address] Report Submission Date: May 31, 2017 3:46:02 PM CDT Patient Study Name: SUSU SANTANA Date: May 31, 2017 3:27:43 PM CDT Modality Type: CT\SR Gender: M Description: CT BRAIN W/O CONTRAST : 31 Institution: [facility] Physician: LETA LAI Examination: CT head without contrast History: Change and mental status. Comparison exam: None available Technique: Noncontrast head CT protocol. Findings: Ventricles and sulci are prominent, though consistent for patient age. Cerebrocerebellar parenchyma demonstrates periventricular low attenuation consistent with small vessel disease. Large area of low attenuation extending superiorly from the right lateral ventricle into the superior frontal lobe region. No evidence for parenchymal hemorrhage. No evidence for mass or mass effect. No midline shift. No extra axial fluid collections. Partial visualization of the paranasal sinuses, mastoid air cells, orbits, skull and scalp without gross regularity. Anterior falx calcifications. Impression: Advanced age related changes. 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 No acute appearing parenchymal process. No hemorrhage. Correlation with older studies highly recommended, if become available, to document stability the presumed age related/old parenchymal infarcts. If none are available, or if there is a high clinical concern, consider obtaining MRI brain to further evaluate. Electronically signed on May 31, 2017 3:46:02 PM CDT by: Zeferino WONG
--- NOTE | 2017-05-31 16:41 | Diagnostic Imaging Report ---
[facility] [address] [facility].[address] [address] Report Submission Date: May 31, 2017 3:48:37 PM CDT Patient Study Name: SUSU SANTANA Date: May 31, 2017 3:31:27 PM CDT Modality Type: CR Gender: M Description: CHEST : 31 Institution: [facility] Physician: LETA LAI Examination: Portable chest History: Chest discomfort Comparison exam: 28 May 2017 Findings: Single view of the chest demonstrates a normal cardiac silhouette. Vascular calcifications involving the aortic arch. Left-sided cardiac pacemaker. Parenchymal haziness involving the perihilar regions colon present on previous examination. No blunting of the costophrenic margins. Osseous structures are appropriate for age. Impression: Persistent perihilar infiltrates. No effusion. Electronically signed on May 31, 2017 3:48:37 PM CDT by: Zeferino WONG
[2017-05-31] MEDS ORDERED: DIAZEPAM 5 MG/ML DISP.SYRIN IVP PRN (16:46)
[2017-05-31] MEDS ORDERED: 0.9 % SODIUM CHLORIDE 100 ML IV ONE ×2 (17:21→18:00)
[2017-05-31] MEDS ORDERED: FOSPHENYTOIN SODIUM IV SCH (18:00)
[2017-05-31] MEDS ORDERED: SODIUM CHLORIDE 0.9% IV SCH (18:00)
[2017-05-31] MEDS: FOSPHENYTOIN SODIUM IV SCH (18:13)
[2017-05-31] MEDS: SODIUM CHLORIDE 0.9% IV SCH (18:13)
[2017-05-31 18:18] VITALS: BMI 20.3
[2017-05-31] MEDS: LACTATED RINGERS 1,000 ML IV SCH ×2 (18:31→22:42)
[2017-05-31] MEDS ORDERED: FOSPHENYTOIN SODIUM 500 MG/10 ML VIAL IV ONE (19:13)
[2017-06-01 07:05] LABS: BASOPHILS % 0.4 (0.0-1.5); EOSINOPHILS % 6.5 % (0.0-6.8); MEAN CORPUSCULAR HEMOGLOBIN 33.5 pg (28.0-34.0); MEAN CORPUSCULAR VOLUME 99.7 fl (80.0-100.0); MONOCYTES % 5.1 % (0.0-11.0); NEUTROPHILS # 4.1 # k/uL (1.4-7.7)
[2017-06-01 07:34] LABS: eGFR (African) > 60; eGFR (Non-African) > 60
--- NOTE | 2017-06-01 08:24 | History and Physical Report ---
CHIEF COMPLAINT: Unresponsiveness. HISTORY OF PRESENT ILLNESS: This is an 87-year-old male well known to myself who is actually at [facility] today. Yesterday, he was up, ambulated, and ate very well. He was actually doing extremely well. He went to bed and initially when he got up this morning , he was nearly back to himself. About 8:30 this morning, he essentially became less and less responsive. [facility] and he could not be aroused. He had a left-sided facial droop and was only minimally arousable. As a result, I sent him to the emergency room for an evaluation. 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 A chest x-ray showed a persistent perihilar infiltrate. Because of his continued unresponsiveness, he was admitted for observation. It was noted he had quite a bit of some tonic-clonic movement when he was admitted and Dr. Cruz did load him with some Cerebyx in the emergency department. This was for a presumptive diagnosis of a seizure disorder. He does not have a pre-established history of this. PAST MEDICAL HISTORY: His past medical history is extensive and notable for: 1. History of chronic anemia. 2. History of cardiomyopathy with an ejection fraction in the 20% to 30% range. 3. Chronic congestive heart failure. 4. Coronary arteriosclerosis with a stent placed several years ago. 5. Chronic hypoxia. 6. Weight loss. 7. Depression. PAST SURGICAL HISTORY: 1. Cholecystectomy. 2. Pacemaker placement. 3. PCI with stent. CURRENT MEDICATIONS: This is taken from his MAR at the [facility] and are as follows: 1. Citalopram 10 mg p.o. daily. 2. Doxazosin 8 mg p.o. at bedtime. 3. Ferrous sulfate 325 mg p.o. b.i.d. 4. Folic acid 1 mg p.o. daily. 5. DuoNeb by nebulizer q.i.d. 6. Losartan 25 mg p.o. daily. 7. Metoprolol tartrate 12.5 mg p.o. b.i.d. 8. Potassium chloride 20 mEq 1 p.o. daily. 9. Pravastatin 20 mg daily. 10. Warfarin 5 mg p.o. daily. 11. Cholestyramine 4 mg p.o. t.i.d. 12. Benadryl on p.r.n. basis. 13. Calcium with vitamin D 500 mg 1 p.o. b.i.d. 14. Methotrexate 2.5 mg orally on Tuesday. 15. Omeprazole 40 mg daily. 16. Tramadol 50 mg p.o. b.i.d. p.r.n. pain. He had been on levofloxacin also at the hospital and this was because he was unresponsive to azithromycin and cefuroxime. We had held a macrolide because of his Coumadin therapy. ALLERGIES: He is allergic to no known medications. SOCIAL HISTORY: He is to his second , Sarah. He has been to her for 41 years. He is retired. He is a [employer] [place]. He has not smoked for years and no significant alcohol consumption. FAMILY HISTORY: Noncontributory. REVIEW OF SYSTEMS: Review of systems cannot be obtained because he is not responsive. PHYSICAL EXAMINATION: General: This is a frail elderly 87-year-old male. Vital Signs: T: 97.3, P: 63, BP: 115/72, R: 24, pulse oximetry is 93% on room air. HEENT: Shows his head to be normocephalic and atraumatic. He has a left-sided facial droop with ptosis of the left eye also. Pupils are equal but sluggishly reactive, however, he has had cataract surgery, which would make them less responsive. Mucous membranes are a little bit dry. Neck: No JVD is noted. Lungs: His lungs show markedly decreased air movement in all lung haskins. A few crackles are noted at the bases bilaterally. Heart: His heart is in an irregularly irregular rhythm. He has a 3 over 6 systolic ejection murmur suggestive of aortic stenosis. Abdomen: Soft. Scaphoid. No guarding or rebound. No masses. No bruits. Genitalia: Examination showed him to be uncircumcised. Testes are down bilaterally with no inguinal hernias identified. Rectal Exam: Deferred. Extremities. Showed no pedal edema. Osteoarthritic changes are noted of both feet. LABORATORY: White count 7.4, hemoglobin 10.9, hematocrit 31.1, platelets are normal at 139, 000. His INR is 2.56. Chemistry shows a sodium of 133, potassium 4.3, chloride 98, CO2 is 28, BUN 33, creatinine 1.10, glucose 88, calcium 8.5, total bilirubin 0.4, AST and ALT are not elevated. Creatine kinase is actually low at 23 and his albumin is also low at 3.0. RADIOLOGY: Chest x-ray again shows a persistent right perihilar infiltrate. 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 No hemorrhage. No acute changes. ASSESSMENT: 1. Mental status changes with a differential diagnosis of seizure versus stroke. 2. Chronic atrial fibrillation. 3. Chronic anticoagulation, currently therapeutic. 4. Atherosclerotic coronary vascular disease without evidence of acute ischemia. 5. Congestive heart failure, well compensated. 6. Hypertension, well controlled. PLAN: 1. We will start him on Cerebyx at 250 mg IV daily. That is the dose of 5 mg per kilogram roughly. 2. We will observe tonight for improvement. 3. Likely will need to repeat a CT of his head in the morning to see if there is any evidence of any changes. 4. We will honor his NO CODE BLUE at this time. MARVIN
--- NOTE | 2017-06-01 09:14 | Inpatient Progress Note ---
Subjective - Required Recertification Statement I anticipate X number of days because-include discharge plan: 1 - Review of Systems Events since last encounter: Jerome had a brief period of lucidity last evening, but now is again non verbal. He is breathing well. He does not appear to be in failure. Due to his chest XR showing persistent infiltrates, I will restart his antibiotics. He cannot swallow pills, so his INR is expected to drop. He is otherwise without evidence of pain, but cannot follow commands, although he does occasionally track with his eyes. General: Denies: Chills HEENT: Denies: Head Aches Pulmonary: Dyspnea (chronic) Cardiovascular: Denies: Chest Pain Gastrointestinal: Denies: Nausea Genitourinary: Denies: Dysuria Neurological: Weakness, Change in Speech (loss of speech) Objective - Exam Vitals and I&O: Vital Signs Temp 96.6 F L 06/01/17 05:05 Pulse 72 06/01/17 05:05 Resp 26 H 06/01/17 05:05 BP 129/74 06/01/17 05:05 Pulse Ox 95 06/01/17 05:05 Intake & Output 05/31/17 05/31/17 06/01/17 11:59 23:59 11:59 Intake Total 100 Balance 100 Weight 58.967 kg Intake: IV 100 Left Wrist 100 Other: Voiding Method Diaper # Voids 3 General: Thin HEENT: Atraumatic Neck: No JVD Lungs: Prolonged Expiration, Decreased Air Movement Cardiovascular: Irregularly Irregular Abdomen: Normal bowel sounds, Soft Extremities: No clubbing, No cyanosis, No edema Skin: Normal, [place] Neurological: No: Normal speech (non verbal) Psych/Mental Status: No: Other - Results Results: Laboratory Results WBC 6.68 K/ul (4.00-12.00) 06/01/17 06:25 RBC 3.14 M/ul (3.90-5.20) L 06/01/17 06:25 Hgb 10.5 g/dL (12.0-18.0) L 06/01/17 06:25 Hct 31.4 % (37.0-53.0) L 06/01/17 06:25 MCV 99.7 fl (80.0-100.0) 06/01/17 06:25 MCH 33.5 pg (28.0-34.0) 06/01/17 06:25 MCHC 33.6 g/dL (30.0-36.0) 06/01/17 06:25 RDW 14.2 % (11.3-14.3) 06/01/17 06:25 Plt Count 143 K/mm3 (130-400) 06/01/17 06:25 Neut % (Auto) 60.8 % (39.0-79.0) 06/01/17 06:25 Lymph % (Auto) 24.8 % (16.0-50.0) 06/01/17 06:25 [place] % (Auto) 5.1 % (0.0-11.0) 06/01/17 06:25 Eos % (Auto) 6.5 % (0.0-6.8) 06/01/17 06:25 Baso % (Auto) 0.4 (0.0-1.5) 06/01/17 06:25 Neut # (Auto) 4.1 # k/uL (1.4-7.7) 06/01/17 06:25 Lymph # (Auto) 1.7 # k/uL (0.6-4.0) 06/01/17 06:25 [place] # (Auto) 0.3 # k/uL (0.0-0.9) 06/01/17 06:25 Eos # (Auto) 0.4 # k/uL (0.0-0.6) 06/01/17 06:25 Baso # (Auto) 0.0 # k/uL (0.0-0.5) 06/01/17 06:25 Reactive Lymphs % 2.3 % (0.0-5.0) 06/01/17 06:25 Reactive Lymphs # 0.2 # k/uL (0.0-0.8) 06/01/17 06:25 PT 28.6 Seconds (9.4-11.6) H 06/01/17 06:25 INR 2.69 (0.9-1.2) H 06/01/17 06:25 APTT 38.5 Seconds (24.5-32.8) H 05/31/17 15:20 Sodium 135 mmol/L (137-145) L 06/01/17 06:25 Potassium 4.3 mmol/L (3.5-5.1) 06/01/17 06:25 Chloride 101 mmol/L (98-107) 06/01/17 06:25 Carbon Dioxide 29 mmol/L (22-30) 06/01/17 06:25 BUN 29 mg/dL (9-20) H 06/01/17 06:25 Creatinine 0.90 mg/dL (0.66-1.25) 06/01/17 06:25 Estimated Creat Clear 49 06/01/17 06:25 Est GFR ( Amer) > 60 (60-) 06/01/17 06:25 Est GFR (Non-Af Amer) > 60 (60-) 06/01/17 06:25 Glucose 74 mg/dL (74-106) 06/01/17 06:25 Calcium 8.3 mg/dL (8.4-10.2) L 06/01/17 06:25 Total Bilirubin 0.3 mg/dL (0.2-1.3) 06/01/17 06:25 AST 19 U/L (15-46) 06/01/17 06:25 ALT 24 U/L (13-69) 06/01/17 06:25 Alkaline Phosphatase 49 U/L (38-126) 06/01/17 06:25 Creatine Kinase 23 U/L (55-170) L 05/31/17 15:20 Total Protein 6.1 g/dL (6.3-8.2) L 06/01/17 06:25 Albumin 2.8 g/dL (3.5-5.0) L 06/01/17 06:25 Assessment/Plan - Assessment/Plan (1) Altered awareness, transient Status: Acute Current Visit: Yes Assessment: With diagnosis of stroke vs seizure although currently without any evidence of tonic clonic movement (2) Atrial fibrillation Status: Acute Current Visit: Yes (3) Anemia Status: Acute Current Visit: No Qualifiers: Anemia type: iron deficiency (4) Pneumonia Status: Acute Current Visit: No Qualifiers: Pneumonia type: due to unspecified organism Laterality: right Lung location: middle lobe of lung Qualified Code(s): J18.1 - Lobar pneumonia, unspecified organism Narrative Support Text: Restart Rocephin and Azithromycin
[2017-06-01] MEDS ORDERED: AZITHROMYCIN 250 MG in 0.9 % SODIUM CHLORIDE 250 ML IV SCH (10:00)
[2017-06-01] MEDS ORDERED: cefTRIAXone SODIUM 1 GM in 0.9 % SODIUM CHLORIDE 50 ML IV SCH (10:00)
[2017-06-01] MEDS ORDERED: FOSPHENYTOIN SODIUM 500 MG/10 ML VIAL IV ONE (10:11)
[2017-06-01] MEDS: FOSPHENYTOIN SODIUM IV SCH (10:20)
[2017-06-01] MEDS: SODIUM CHLORIDE 0.9% IV SCH (10:20)
[2017-06-01 12:06] VITALS: BP 122/74
--- NOTE | 2017-06-01 15:19 | Discharge Summary ---
DATE OF ADMISSION: May 31, 2017 DATE OF DISCHARGE: June 01, 2017 DIAGNOSES ON THIS HOSPITALIZATION: 1. Altered mental status. 2. Atrial fibrillation. 3. End-stage chronic obstructive pulmonary disease (COPD). 4. Congestive heart failure (CHF). 5. Anemia of chronic disease. SUMMARIZATION OF ADMISSION HISTORY AND PHYSICAL: This is an 87-year-old male who [facility] after he had an alteration of mental status. He became unresponsive. He was brought to the emergency room for an evaluation where he was noted to have an old right frontal infarct but no acute findings. He had a brief period of lucidity in which he stated he was able to understand us and could hear us but was simply unable to speak or move. He did not have any further periods of lucidity. I discussed him with Dr. Krish Cruz with Neurology at [facility] who suggested that he probably needs to have an EEG. We did load him with Cerebyx prior to his transfer. His INR was 2.69 this morning. He will be transferred then by ambulance to [facility] in poor condition. MARVIN
== END 2017-06-01 11:05 | disposition short-term general hospital (02) ==
LOC: ED 15:05 → SOUTH 16:35
PROVIDERS: ADMIT Family Medicine; ATTEND Family Medicine
DX: R41.82 Altered mental status, unspecified (principal); I13.2 Hypertensive heart and chronic kidney disease with heart failure and with stage 5 chronic kidney disease, or end stage renal disease; N18.6 End stage renal disease; I50.9 Heart failure, unspecified; Z99.2 Dependence on renal dialysis; D63.1 Anemia in chronic kidney disease; I48.91 Unspecified atrial fibrillation
CPT/HCPCS: 36415; 70450; 71010; 80053; 82550; 85025; 85610; 85730; 93005; G0378; J7030; J7120; Q2009; 96361; 96374; 96376; 99283; 99284

== ENCOUNTER 2017-08-02 11:24 | Outpatient (CLI) | payer MEDICARE, OTHER ==
[2017-08-02 11:40] LABS: BASOPHILS % 0.4 (0.0-1.5); EOSINOPHILS % 1.6 % (0.0-6.8); MEAN CORPUSCULAR HEMOGLOBIN 32.3 pg (28.0-34.0); MEAN CORPUSCULAR VOLUME 101.2 fl (80.0-100.0); MONOCYTES % 3.9 % (0.0-11.0); NEUTROPHILS # 3.8 # k/uL (1.4-7.7)
[2017-08-02 12:35] LABS: eGFR (African) > 60; eGFR (Non-African) > 60
== END 2017-08-02 11:25 ==
LOC: LAB 11:24
PROVIDERS: ATTEND Family Medicine
DX: I48.2 Chronic atrial fibrillation (principal); I50.9 Heart failure, unspecified; Z51.81 Encounter for therapeutic drug level monitoring
CPT/HCPCS: 36415; 80053; 85025; 85610

== ENCOUNTER 2017-08-10 12:47 | Outpatient (CLI) | payer MEDICARE, OTHER ==
--- NOTE | 2017-08-10 14:59 | Diagnostic Imaging Report ---
CHRIS HAMILTON [facility] [address] [facility] [address] [address] Report Submission Date: Aug 10, 2017 2:40:55 PM SOURCING ANALYST Patient Study Name: SUSU SANTANA Date: Aug 10, 2017 2:13:49 PM SOURCING ANALYST Modality Type: CR Gender: M Description: CHEST : 31 Institution: [facility] Physician: CHRIS HAMILTON Examination: PA and lateral chest. History: Evaluate lung haskins. Comparison exam: 31 May 2017 Findings: PA lateral chest demonstrate an enlarged cardiac silhouette. Development of a moderate sized right pleural effusion. Generalized perihilar parenchymal haziness. Vascular calcification vomiting the aortic arch. Left- sided cardiac pacemaker. Osseous structures are appropriate for age. Impression: Cardiomegaly. Perihilar haziness and moderate right base effusion. Infiltrate versus increased volume status/congestive failure. Electronically signed on Aug 10, 2017 2:40:55 PM SOURCING ANALYST by: Zeferino WONG
== END 2017-08-10 14:07 ==
LOC: LAB 12:47
PROVIDERS: ATTEND Family Medicine
DX: I50.9 Heart failure, unspecified (principal); Z51.81 Encounter for therapeutic drug level monitoring
CPT/HCPCS: 36415; 71020; 85610

== ENCOUNTER 2017-09-01 13:35 | Outpatient (CLI) | payer MEDICARE, OTHER | END 2017-09-01 13:36 | LOC: LAB 13:35 | PROVIDERS: ATTEND Family Medicine | DX: Z51.81 Encounter for therapeutic drug level monitoring (principal) | CPT/HCPCS: 36415; 85610 ==

== ENCOUNTER 2017-09-16 12:01 | Outpatient (CLI) | payer MEDICARE, OTHER | END 2017-09-16 12:03 | LOC: LAB 12:01 | PROVIDERS: ATTEND Internal Medicine Cardiovascular Disease | DX: Z79.01 Long term (current) use of anticoagulants (principal) | CPT/HCPCS: 36415; 85610 ==

== ENCOUNTER 2017-09-28 14:02 | Outpatient (CLI) | payer MEDICARE, OTHER | END 2017-09-28 14:03 | LOC: LAB 14:02 | PROVIDERS: ATTEND Internal Medicine Cardiovascular Disease | DX: Z79.01 Long term (current) use of anticoagulants (principal) | CPT/HCPCS: 36415; 85610 ==

== ENCOUNTER 2017-10-12 14:45 | Outpatient (CLI) | payer MEDICARE, OTHER | END 2017-10-12 14:46 | LOC: LAB 14:45 | PROVIDERS: ATTEND Internal Medicine Cardiovascular Disease | DX: R31.21 Asymptomatic microscopic hematuria (principal); Z79.01 Long term (current) use of anticoagulants | CPT/HCPCS: 36415; 85610; 87086 ==

== ENCOUNTER 2017-12-15 17:05 | Outpatient (CLI) | payer MEDICARE, OTHER ==
--- NOTE | 2017-12-16 07:08 | Diagnostic Imaging Report ---
SELENA FLOOD [facility] [address] [facility] [address] Report Submission Date: Dec 15, 2017 5:36:02 PM CDT Patient Study Name: SUSU SANTANA Date: Dec 15, 2017 5:18:46 PM CDT Modality Type: DX Gender: M Description: CHEST : 31 Institution: [facility] Physician: SELENA FLOOD Examination: PA and lateral chest. History: Evaluate lung haskins. CXR, DYSPNEA ON EXERTION, WORSENING (Hx) Comparison exam: 10 August 2017 Findings: PA lateral chest demonstrate a prominent cardiac and mediastinal silhouette. Mildly tortuous aorta with vascular calcifications involving the aortic arch. No focal infiltrate. Blunting of the posterior sulci. Left-sided cardiac pacemaker. Osseous structures are appropriate for age. Impression: Small posterior effusion. Electronically signed on Dec 15, 2017 5:36:02 PM CDT by: Zeferino WONG
== END 2017-12-15 17:10 ==
LOC: RAD 17:05
PROVIDERS: ATTEND Family Medicine
DX: R06.09 Other forms of dyspnea (principal)
CPT/HCPCS: 71046

== ENCOUNTER 2018-03-06 18:30 | Outpatient (CLI) | payer MEDICARE, OTHER ==
[2018-03-06 19:02] LABS: eGFR (African) > 60; eGFR (Non-African) > 60
== END 2018-03-06 18:32 ==
LOC: LAB 18:30
PROVIDERS: ATTEND Family Medicine
DX: I50.9 Heart failure, unspecified (principal)
CPT/HCPCS: 80048; 83880

== ENCOUNTER 2018-03-13 17:57 | Outpatient (CLI) | payer MEDICARE, OTHER ==
[2018-03-13 18:50] LABS: eGFR (African) > 60; eGFR (Non-African) > 60
== END 2018-03-13 18:00 ==
LOC: LAB 17:57
PROVIDERS: ATTEND Family Medicine
DX: I50.9 Heart failure, unspecified (principal); Z79.899 Other long term (current) drug therapy
CPT/HCPCS: 80048

== ENCOUNTER 2018-03-20 16:29 | Outpatient (CLI) | payer MEDICARE, OTHER ==
[2018-03-20 17:46] LABS: eGFR (African) > 60; eGFR (Non-African) > 60
== END 2018-03-20 16:30 ==
LOC: LAB 16:29
PROVIDERS: ATTEND Internal Medicine Cardiovascular Disease
DX: I10 Essential (primary) hypertension (principal); I25.10 Atherosclerotic heart disease of native coronary artery without angina pectoris; I48.2 Chronic atrial fibrillation; I49.5 Sick sinus syndrome; I50.22 Chronic systolic (congestive) heart failure
CPT/HCPCS: 36415; 80048

== ENCOUNTER 2018-03-27 13:52 | Outpatient (CLI) | payer MEDICARE, OTHER ==
[2018-03-27 14:39] LABS: eGFR (African) > 60; eGFR (Non-African) > 60
== END 2018-03-27 13:53 ==
LOC: LAB 13:52
PROVIDERS: ATTEND Nurse Practitioner
DX: I10 Essential (primary) hypertension (principal); I25.10 Atherosclerotic heart disease of native coronary artery without angina pectoris; I48.2 Chronic atrial fibrillation; I49.5 Sick sinus syndrome; I50.22 Chronic systolic (congestive) heart failure
CPT/HCPCS: 36415; 80048

== ENCOUNTER 2018-04-17 15:42 | Observation (INO) | payer MEDICARE, OTHER ==
[2018-04-17] MEDS ORDERED: IPRATROPIUM/ALBUTEROL SULFATE 3 ML AMPUL.NEB NEB PRN (15:47)
[2018-04-17 17:41] LABS: BASOPHILS % 0.4 (0.0-1.5); EOSINOPHILS % 0.7 % (0.0-6.8); MEAN CORPUSCULAR HEMOGLOBIN 32.9 pg (28.0-34.0); MEAN CORPUSCULAR VOLUME 102.9 fl (80.0-100.0)
[2018-04-17 18:05] LABS: eGFR (Non-African) > 60
--- NOTE | 2018-04-17 18:09 | History and Physical Report ---
History of Present Illnes - History of Present Illness Reason for Visit: dyspnea, malaise, fever History of Present Illness: This is an 88 year old male well known to myself who presents after being very weak, dyspneic and with low grade fever for the past few days. He has not passed out recently. He did see Dr. Rodriguez the other day and was taken off of his warfarin and started on Eliquis and Entresto. - Past Medical History Cardiac: AFIB, CHF Pulmonary: COPD FOUNDRY MANAGER: TIA Gastrointestinal: denies: Other Heme/Onc: Anemia NOS Hepatobiliary: denies: Cirrhosis Psych: denies: Anxiety, Addictions Musculoskeletal: denies: Other Rheumatologic: denies: Other Infectious Disease: denies: Other ENT: Other Renal/: Chronic renal insuff Endocrine: Osteoporosis Dermatology: denies: Other - Past Surgical History Past Surgical History: Cholecystectomy, Other (Pacemaker) - Past Social History Smoke: Quit Alcohol: None Drugs: None Lives: With Family ( Sarah) Domestic Violence: Negative - Health Maintenance Health Maintenance: Cholesterol Influenza Vaccine: Current for this Influenza Season Pneumonia Vaccine: Yes Resuscitation Status: Resusciation Status Resuscitation Status Do Not Resuscitate - Unable to Obtain History Unable to Obtain: No Review of Systems - Review of Systems Constitutional: Chills, Sweats, Weakness, Malaise. negative: Fever Eyes: negative: pain ENT: negative: Ear Pain, Ear Discharge Respiratory: Cough, Dry, Shortness of Breath Cardiovascular: negative: Chest Pain, Palpitations Gastrointestinal: negative: Nausea, Vomiting Genitourinary: negative: Dysuria Musculoskeletal: negative: Neck Pain Skin: negative: Rash, Lesions Neurological: Weakness, Change in Speech, Confusion - Medications/Allergies Allergies/Adverse Reactions: Allergies Allergy/AdvReac Type Severity Reaction Status Date / Time No Known Allergies Allergy Verified 05/31/17 15:39 Current Inpatient Medications: Current Inpatient Medications Albuterol/Ipratropium (Duoneb) 3 ml NEB Q4 PRN PRN Reason: Wheezing Furosemide (Lasix) 40 mg PO 714 HIMA Miscellaneous (Non Form) 1 each PO BID HIMA Exam - Exam Vital Signs: Vital Signs (72 hours) 04/17/18 16:29 Temperature 99.4 F Pulse Rate [ 70 Left] Respiratory 18 Rate Blood Pressure 141/68 [Left Arm] O2 Sat by Pulse 97 Oximetry General: Alert, Oriented to Person, Oriented to Place, Oriented to Time, Mild distress (respiratory) HEENT: Atraumatic, PERRLA, EOMI, Other (Dentures) Neck: No: Stridor, Normal Range of Motion Lungs: Prolonged Expiration (Pacemaker in place in left upper chest), Decreased Air Movement Cardiovascular: Regular rate Murmur: Systolic Murmur Murmur Location: Left Sternal [place] Heart Murmur Grade: II Abdomen: Normal bowel sounds, Soft Genitourinary: No: Other Male Genitourinary: No: Other Female Genitourinary: No: Other Integumentary: Normal, Pale Extremities: Other (Trace edema bilaterally) Neurological: Normal speech Psych/Mental Status: Mental status NL - Laboratory Results Laboratory Results: Laboratory Results 04/17/18 Unknown WBC 4.80 RBC 4.00 Hgb 13.2 Hct 41.2 MCV 102.9 H MCH 32.9 MCHC 31.9 RDW 14.5 H Plt Count 136 Neut % (Auto) 62.7 Lymph % (Auto) 33.0 [place] % (Auto) 2.0 Eos % (Auto) 0.7 Baso % (Auto) 0.4 Neut # (Auto) 3.0 Lymph # (Auto) 1.6 [place] # (Auto) 0.1 Eos # (Auto) 0.0 Baso # (Auto) 0.0 Reactive Lymphs % 1.1 Reactive Lymphs # 0.0 Assessment/Plan - Assessment/Plan (1) Congestive heart failure Status: Acute Current Visit: Yes Qualifiers: Heart failure type: systolic Heart failure chronicity: chronic Qualified Code(s): I50.22 - Chronic systolic (congestive) heart failure Assessment: Continue current dose of lasix (2) Atrial fibrillation Status: Acute Current Visit: No Assessment: Now off of Warfarin and on Eliquis (3) Dyspnea on exertion Status: Acute Current Visit: Yes Assessment: Multifactorial VTE Assessment - RISK FACTOR SCORE VTE RISK FACTOR SCORES: AGE OVER 60 YEARS, ACUTE INFECTION OTHER THEN SEPSIS (Already on eliquis)
[2018-04-17 18:22] VITALS: BMI 23.6
--- NOTE | 2018-04-17 18:51 | Diagnostic Imaging Report ---
VALENTINA HAMILTON [facility] [address] [facility] [address] [address] Report Submission Date: Apr 17, 2018 6:36:47 PM CDT Patient Study Name: SUSU SANTANA Date: Apr 17, 2018 5:44:26 PM CDT Modality Type: DX Gender: M Description: CHEST : 31 Institution: [facility] Physician: VALENTINA HAMILTON PA and lateral chest History: Cough. Shortness of breath. PA and lateral chest dated April 17, 2018 is compared with December 15, 2017 The heart is enlarged. There is an unchanged single lead pacing device. The left lung remains clear. Pulmonary vascularity is within normal limits. There is a small to moderate-sized right pleural effusion which is new. Aortic atherosclerosis is present, unchanged. Impression: Cardiomegaly with a single lead pacing device, unchanged. New small to moderate-sized right pleural effusion. Electronically signed on Apr 17, 2018 6:36:47 PM CDT by: Liz WONG
[2018-04-17] MEDS: APIXABAN 2.5 MG TABLET PO SCH (20:40)
[2018-04-17] MEDS: Non-Formulary 1 EACH PO SCH (20:41)
[2018-04-17] MEDS: SALINE FLUSH 10 ML DISP.SYRIN IV SCH (20:45)
[2018-04-17] MEDS ORDERED: cefTRIAXone SODIUM 1 GM in 0.9 % SODIUM CHLORIDE 100 ML IV ONE (21:00)
[2018-04-17] MEDS ORDERED: cefTRIAXone SODIUM 1 GM VIAL ONE (21:16)
[2018-04-18 04:21] VITALS: BP 129/61
[2018-04-18] MEDS ORDERED: FUROSEMIDE 40 MG TABLET PO SCH (07:00)
[2018-04-18] MEDS: SALINE FLUSH 10 ML DISP.SYRIN IV SCH (09:21)
[2018-04-18] MEDS: APIXABAN 2.5 MG TABLET PO SCH (09:21)
[2018-04-18] MEDS: Non-Formulary 1 EACH PO SCH (09:23)
--- NOTE | 2018-04-26 09:38 | Discharge Summary ---
DATE OF ADMISSION: April 17, 2018 DATE OF DISCHARGE: April 18, 2018 DIAGNOSES ON THIS HOSPITALIZATION: 1. Congestive heart failure. 2. Right pulmonary effusion. 3. Malaise and weakness. 4. Atherosclerotic cardiovascular disease. SUMMARIZATION OF ADMISSION HISTORY AND PHYSICAL: This is an 88-year-old male who presented to my office on the day of admission with increasing shortness of breath over the last several days. He also had a low-grade fever associated with this. A chest x-ray showed an increased right pulmonary effusion and, again, mild cardiomegaly was noted. He was admitted and started on some Rocephin. He was actually feeling quite a bit better by the next morning and his fever had resolved. He was discharged to home. MEDICATIONS ON DISCHARGE: 1. Lasix 40 mg p.o. b.i.d. 2. Potassium chloride 20 mEq p.o. b.i.d. 3. Entresto 24/26 mg 1 p.o. b.i.d. 4. Eliquis 2.5 mg p.o. b.i.d. 5. Cefuroxime 250 mg p.o. b.i.d. for 7 days and a prescription for this was sent to [facility]. DISCHARGE INSTRUCTIONS: I will follow him up in the office in 1 week. MARVIN
== END 2018-04-18 11:45 | disposition home or self-care (01) ==
LOC: SOUTH 15:42
PROVIDERS: ADMIT Family Medicine; ATTEND Family Medicine
DX: I50.22 Chronic systolic (congestive) heart failure (principal); J44.9 Chronic obstructive pulmonary disease, unspecified; I48.91 Unspecified atrial fibrillation; Z79.01 Long term (current) use of anticoagulants; Z86.73 Personal history of transient ischemic attack (TIA), and cerebral infarction without residual deficits
CPT/HCPCS: 71046; 80053; 85025; 94640; 94760; G0378; G0379; J0696; 99217; 99219; S1016

== ENCOUNTER 2019-02-23 14:56 | Outpatient (CLI) | payer MEDICARE, OTHER ==
--- NOTE | 2019-02-24 13:34 | Diagnostic Imaging Report ---
CHRIS HAMILTON [facility] [address] [facility] [address] [address] Report Submission Date: Feb 23, 2019 3:26:57 PM CDT Patient Study Name: SUSU SANTANA Date: Feb 23, 2019 3:00:44 PM CDT Modality Type: DX Gender: M Description: RIBS UNILAT 2 VIEWS : 31 Institution: [facility] Physician: CHRIS HAMILTON Exam: Right ribs. History: Fall. AP and oblique views of the right thorax are submitted. No previous studies are available for comparison. Acute fractures of the right 9th and 8th ribs are noted. Increase in density in the right hemithorax could represent contusion. Small right pleural effusion is also noted. Impression: Acute fractures of the right 9th and 8th ribs. Increase in density to the right hemithorax could represent contusion. Right pleural effusion. Electronically signed on Feb 23, 2019 3:26:57 PM CDT by: Gordon WONG
== END 2019-02-23 14:58 ==
LOC: RAD 14:56
PROVIDERS: ATTEND Family Medicine
DX: R07.81 Pleurodynia (principal)
CPT/HCPCS: 71100

== ENCOUNTER 2019-07-22 10:27 | Inpatient (IN) | payer MEDICARE, OTHER ==
[2019-07-22 11:34] LABS: BASOPHILS % 0.4 % (0.0-1.5); NEUTROPHILS # 2.1 # k/uL (1.4-7.7); SEGMENTED NEUTROPHILS % 57 % (39-79)
[2019-07-22 11:40] LABS: eGFR (Non-African) > 60
--- NOTE | 2019-07-22 12:00 | Diagnostic Imaging Report ---
PATIENT MR#: [id number] PATIENT PATIENT NAME: SUSU SANTANA DATE OF : 1930 REFERRING PHYSICIAN: LIN GRECO EXAM DATE: 07/22/2019 ACCESSION NUMBER: [id number] EXAM DESCRIPTION: CHEST 2VIEW Examination: Portable chest History: Evaluate lungs Comparison exam: 17 April 2018 Findings: Single view of the chest demonstrates a normal cardiac and mediastinal silhouette. Tortuous aorta with vascular calcifications. Chronic interstitial changes. Lung haskins without focal infiltrate. Blunting of the right costophrenic margin: Present on prior study. Left-sided cardiac pacemaker. Osseous structures are cheryl ropriate for age. Impression: Chronic changes right lung base. No acute appearing pulmonary process. Read by: Dr. Zeferino Sharif Transcribed by: Transcribed Date: Electronically signed by: Dr. Zeferino Sharif Date signed: 07/22/2019 11:59:22 AM
--- NOTE | 2019-07-22 13:40 | Diagnostic Imaging Report ---
PATIENT MR#: [id number] PATIENT PATIENT NAME: SUSU SANTANA DATE OF : 1930 REFERRING PHYSICIAN: LIN GRECO EXAM DATE: 07/22/2019 ACCESSION NUMBER: [id number] EXAM DESCRIPTION: CT PE CHEST CT angiography chest History: Tachypnea and hypoxia with cough Findings: Transverse chest sections are obtained after 90 mL intravenous Omnipaque 350 from which mu ltiplanar 3D maximum intensity projections are obtained. Basilar images are nondiagnostic due to extensive respiratory motion. Images without motion artifact reveal no evidence of acute pulmonary embolism. Advanced atherosclerotic disease is observed including three-vessel cor onary artery calcification. Biatrial and left ventricular enlargement are observed. A right ventricular transven ous pacemaker is present. Several mildly enlarged mediastinal lymph nodes are observed. A small right pleural effusi on and mild right basilar atelectasis are present. Impression: 1. No pulmonary embolism on images without motion. 2. Cardiomegaly and three-vessel coronary artery calcification. 3. Small right pleural effusion with adjacent right basilar atelectasis. 4. Right ventricular pacemaker. 5. Nonspecific shotty mediastinal adenopathy. Read by: Dr. Musa Ghotra Transcribed by: Transcribed Date: Electronically signed by: Dr. Musa Ghotra Date signed: 07/22/2019 1:39:21 PM
[2019-07-22] MEDS ORDERED: FUROSEMIDE 20 MG/2 ML VIAL IVP ONE (13:46)
--- NOTE | 2019-07-22 14:03 | ED Physician Documentation ---
General Adult - HISTORIAN Historian: patient, spouse - HPI Stated Complaint: cough Chief Complaint: General Adult Further Comments: yes (89 year old male patient presents with complaints of cough x 1 week, chills and increased shortness of breath. Patient with recent diagnosis of mantle cell lymphoma, had chemo 2 weeks ago. Next chemo this week. Denies fever, denies nausea, vomiting or diarrhea. Reports he is normally hypotensive.) - ROS CONST: recent illness, weakness EYES/ENT: none CVS/RESP: shortness of breath, cough. denies: chest pain GI/: other (family reports poor po intake) MS/SKIN/LYMPH: none - PAST HX Past History: COPD, A-Fib, CHF, other (mantle cell lymphoma) Other History: TIA Allergies/Adverse Reactions: Allergies Allergy/AdvReac Type Severity Reaction Status Date / Time No Known Allergies Allergy Verified 05/31/17 15:39 Home Medications: Ambulatory Orders Medication Instructions Recorded Methotrexate Sodium [Methotrexate] 2.5 mg PO qthurs u2 04/17/18 Sacubitril/Valsartan [Entresto 24 1 each PO BID u2 04/17/18 Mg-26 Mg Tablet] - SOCIAL HX Smoking History: non-smoker - FAMILY HX Family History: No - VITAL SIGNS Vital Signs: Vital Signs Temp Pulse Resp BP Pulse Ox 98.3 F 76 28 H 118/58 99 07/22/19 10:52 07/22/19 13:57 07/22/19 13:57 07/22/19 13:57 07/22/19 13:57 - REVIEWED ASSESSMENTS Nursing Assessment Reviewed: Yes Vitals Reviewed: Yes Progress - Progress Progress: O2 placed at 2L NC - RR down to 28 CT chest results reviewed with family; recommended admission for Oxygen and IV diuretic. Patient and agree. Will eval for home O2. [address] Campos - accepted for admission; orders for ABG. ED Results Lab/Radiology - Lab Results Lab Results: Lab Results 07/22/19 07/22/19 07/22/19 Unknown 10:55 10:55 WBC 3.40 K/ul L K/ul (4.00-12.00) RBC 3.39 M/ul L M/ul (3.90-5.20) Hgb 11.6 g/dL L g/dL (12.0-18.0) Hct 33.5 % L % (37.0-53.0) MCV 99.0 fl fl (80.0-100.0) MCH 34.1 pg H pg (28.0-34.0) MCHC 34.5 g/dL g/dL (30.0-36.0) RDW 11.2 % L % (11.3-14.3) Plt Count 141 K/mm3 K/mm3 (130-400) Neut % (Auto) 61.2 % % (39.0-79.0) Lymph % (Auto) 18.0 % % (16.0-50.0) [place] % (Auto) 15.1 % H % (0.0-11.0) Eos % (Auto) 5.3 % % (0.0-6.8) Baso % (Auto) 0.4 % % (0.0-1.5) Neut # (Auto) 2.1 # k/uL # k/uL (1.4-7.7) Lymph # (Auto) 0.6 # k/uL # k/uL (0.6-4.0) [place] # (Auto) 0.5 # k/uL # k/uL (0.0-0.9) Eos # (Auto) 0.2 # k/uL # k/uL (0.0-0.6) Baso # (Auto) 0.0 # k/uL # k/uL (0.0-0.5) Seg Neutrophils % 57 % % (39-79) Lymphocytes % 21 % % (16-50) Monocytes % 16 % H % (0-11) Eosinophils % 6 % % (0-7) Plt Morphology Comment Normal (NORMAL) RBC Morph Comment Normal (NORMAL) Sodium 139 mmol/L mmol/L (137-145) Potassium 5.1 mmol/L mmol/L (3.5-5.1) Chloride 102 mmol/L mmol/L (98-107) Carbon Dioxide 29 mmol/L mmol/L (22-30) Anion Gap 13.1 BUN 19 mg/dL mg/dL (9-20) Creatinine 0.93 mg/dL mg/dL (0.66-1.25) Estimated Creat Clear 56 Est GFR ( Amer) > 60 (60 - ) Est GFR (Non-Af Amer) > 60 (60 - ) Glucose 109 mg/dL H mg/dL (74-106) Calcium 9.0 mg/dL mg/dL (8.4-10.2) Total Bilirubin 1.0 mg/dL mg/dL (0.2-1.3) AST 41 U/L U/L (15-46) ALT 12 U/L U/L (0-50) Alkaline Phosphatase 39 U/L U/L (38-126) NT-Pro-B Natriuret Pep 2291.0 pg/mL H pg/mL (15.0-450.0) Total Protein 6.4 g/dL g/dL (6.3-8.2) Albumin 3.4 g/dL L g/dL (3.5-5.0) - Orders Orders: ED Orders Category Date Time Status Place IV Lock 1T Care 07/22/19 10:55 Active CHEST 2VIEW [RAD] Stat Exams 07/22/19 10:[address] CHEST PE PROTOCOL [CT PE CHEST] Stat Exams 07/22/19 Completed CBC/PLATELET/DIFF Stat Lab 07/22/19 10:55 Completed CMP Stat Lab 07/22/19 10:55 Completed NT BNP Stat Lab 07/22/19 Completed Furosemide [Lasix] Med 07/22/19 13:46 Discontinued 20 mg IVP NOW ONE General Adult Physical Exam - PHYSICAL EXAM GENERAL APPEARANCE: elderly, frail male lying on stretcher EENT: eye inspection normal, OMID RESPIRATORY: other (tachypnea - RR 38-42; RA Sat 92%) CVS: heart sounds normal, irregularly irregular rhy ABDOMEN: soft, no organomegaly, normal bowel sounds, no abdominal bruit, no distension BACK: normal inspection, no CVA tenderness SKIN: warm/dry, pallor EXTREMITIES: non-tender, normal range of motion, no evidence of injury, no edema, J, ABALONE DIVER NEURO: oriented X3, motor nml, sensation nml, mood/affect nml Discharge Clincal Impression: Hypoxemia requiring supplemental oxygen Congestive heart failure Qualifiers: Heart failure type: unspecified Heart failure chronicity: acute on chronic Qualified Code(s): I50.9 - Heart failure, unspecified Dyspnea Qualifiers: Dyspnea type: acute respiratory distress Qualified Code(s): R06.03 - Acute respiratory distress Mantle cell lymphoma Qualifiers: Lymphoma site: unspecified region Qualified Code(s): C83.10 - Mantle cell lymphoma, unspecified site A-fib Qualifiers: Atrial fibrillation type: longstanding persistent Qualified Code(s): I48.11 - Longstanding persistent atrial fibrillation Condition: Fair Disposition: 09 ADMITTED INPATIENT Decision to Admit: [id number] Decision Time: 14:11
[2019-07-22] MEDS ORDERED: METHOTREXATE SODIUM 2.5 MG PO SCH (14:30)
[2019-07-22 15:19] VITALS: BMI 20.9
--- NOTE | 2019-07-22 17:37 | History and Physical Report ---
History of Present Illnes - History of Present Illness Reason for Visit: Congestive heart failure History of Present Illness: This is an 89 year old male who brought his to the ER today, and while there was noted to be very short of breath and tachypneic. 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 He denies that he is having any chest pain. He has been afebrile, but has been coughing up quite a bit of sputum. - Past Medical History Cardiac: AFIB, CHF Pulmonary: COPD LINER INSERTER: TIA Heme/Onc: Anemia NOS ENT: Other Renal/: Chronic renal insuff Endocrine: Osteoporosis - Past Surgical History Past Surgical History: Cholecystectomy, Other (Pacemaker) - Past Social History Smoke: Quit Alcohol: None Drugs: None Lives: With Family ( Sarah) Domestic Violence: Negative - Health Maintenance Health Maintenance: Cholesterol Pneumonia Vaccine: Yes Resuscitation Status: Resusciation Status Resuscitation Status Full Code - Unable to Obtain History Unable to Obtain: No Review of Systems - Review of Systems Constitutional: Weakness, Malaise. negative: Fever, Chills Eyes: negative: pain, vision change ENT: Throat Pain. negative: Ear Pain Respiratory: Cough, Sputum. negative: Hemoptysis Cardiovascular: negative: Chest Pain, Palpitations Gastrointestinal: negative: Nausea, Vomiting Genitourinary: negative: Dysuria Musculoskeletal: negative: Neck Pain Skin: negative: Rash, Lesions, Jaundice Neurological: Weakness. negative: Change in Speech, Confusion - Medications/Allergies Allergies/Adverse Reactions: Allergies Allergy/AdvReac Type Severity Reaction Status Date / Time No Known Allergies Allergy Verified 05/31/17 15:39 Current Inpatient Medications: Current Inpatient Medications Apixaban (Eliquis) 5 mg PO HS HIMA Stop: 08/21/19 20:59 Miscellaneous (Methotrexate Sodium [Methotrexate]) 2.5 mg PO qthursday HIMA Stop: 08/21/19 14:29 Miscellaneous (Sacubitril/Valsartan [Entresto 24 Mg-26 Mg Tablet]) 1 each PO BID HIMA Stop: 08/21/19 20:59 Potassium Chloride (Klor-Con M20) 20 meq PO DAILY HIMA Stop: 08/22/19 08:59 Exam - Exam Vital Signs: Vital Signs (72 hours) 07/22/19 07/22/19 07/22/19 10:52 13:57 14:17 Temperature 98.3 F 98.0 F Pulse Rate [ 67 76 60 Pulse ox] Respiratory 38 H 28 H 24 Rate Blood Pressure 92/51 118/58 [Left Arm] Blood Pressure 106/63 [Right Arm] O2 Sat by Pulse 93 99 100 Oximetry 07/22/19 07/22/19 14:18 14:25 Temperature 98.3 F Pulse Rate [ 76 Pulse ox] Respiratory 28 H Rate Blood Pressure [Left Arm] Blood Pressure 112/56 [Right Arm] O2 Sat by Pulse 99 99 Oximetry General: Alert, Oriented to Person, Oriented to Place, Oriented to Time, Cooperative, Mild distress (respiratory) HEENT: Atraumatic, PERRLA, EOMI, Nose Mucous membr. moist/[place] Neck: Other (pacemaker in left upper chest). No: Normal Range of Motion (decreased) Lungs: Wheezes, Rales, Prolonged Expiration, Decreased Air Movement Cardiovascular: Regular rate Murmur: Systolic Murmur Murmur Location: Left Sternal [place] Heart Murmur Grade: II Abdomen: Normal bowel sounds, Soft, No tenderness Genitourinary: No: Right Inguinal Hernia, Left Inguinal Hernia Male Genitourinary: No: Scrotal Edema Female Genitourinary: No: Other Integumentary: Normal, [place], Warm, Dry Extremities: No clubbing, No cyanosis, No edema Neurological: Normal speech Psych/Mental Status: Mental status NL - Laboratory Results Laboratory Results: Laboratory Results 07/22/19 07/22/19 07/22/19 10:55 10:55 Unknown WBC 3.40 L RBC 3.39 L Hgb 11.6 L Hct 33.5 L MCV 99.0 MCH 34.1 H MCHC 34.5 RDW 11.2 L Plt Count 141 Neut % (Auto) 61.2 Lymph % (Auto) 18.0 [place] % (Auto) 15.1 H Eos % (Auto) 5.3 Baso % (Auto) 0.4 Neut # (Auto) 2.1 Lymph # (Auto) 0.6 [place] # (Auto) 0.5 Eos # (Auto) 0.2 Baso # (Auto) 0.0 Seg Neutrophils % 57 Lymphocytes % 21 Monocytes % 16 H Eosinophils % 6 Plt Morphology Comment Normal RBC Morph Comment Normal Sodium 139 Potassium 5.1 Chloride 102 Carbon Dioxide 29 Anion Gap 13.1 BUN 19 Creatinine 0.93 Estimated Creat Clear 56 Est GFR ( Amer) > 60 Est GFR (Non-Af Amer) > 60 Glucose 109 H Calcium 9.0 Total Bilirubin 1.0 AST 41 ALT 12 Alkaline Phosphatase 39 NT-Pro-B Natriuret Pep 2291.0 H Total Protein 6.4 Albumin 3.4 L Assessment/Plan - Assessment/Plan (1) Congestive heart failure Status: Acute Current Visit: Yes Qualifiers: Heart failure type: unspecified Heart failure chronicity: acute on chronic Qualified Code(s): I50.9 - Heart failure, unspecified Assessment: Gentle diuresis due to low blood pressures (2) Dyspnea Status: Acute Current Visit: Yes Qualifiers: Dyspnea type: acute respiratory distress Qualified Code(s): R06.03 - Acute respiratory distress Assessment: Due to combination of CHF and panlobular emphysema (3) Hypoxemia requiring supplemental oxygen Status: Acute Current Visit: Yes Assessment: Continue supplemental oxygen (4) Mantle cell lymphoma Status: Acute Current Visit: Yes Qualifiers: Lymphoma site: unspecified region Qualified Code(s): C83.10 - Mantle cell lymphoma, unspecified site Assessment: Continue to follow with oncology (5) CAD (coronary artery disease), [place] coronary artery Status: Acute Current Visit: Yes Qualifiers: [place] vs. transplanted heart: [place] heart Associated angina: without angina Qualified Code(s): I25.10 - Atherosclerotic heart disease of [place] coronary artery without angina pectoris Assessment: No evidence of current ischemia VTE Assessment - RISK FACTOR SCORE VTE RISK FACTOR SCORES: AGE OVER 60 YEARS, ACUTE RESPIRATORY FAILURE/SEVERE COPD - RISK VTE MODERATE RISK: SCORE OF 2 (RISK PROXIMAL DVT 2-4%) PROPHYAXIS NEEDED (On Eliquis)
[2019-07-22] MEDS: Non-Formulary 1 EACH INH SCH (18:02)
[2019-07-22] MEDS: guaiFENesin 600 MG TAB.ER.12H PO SCH (20:04)
[2019-07-22] MEDS: APIXABAN 5 MG TABLET PO SCH (20:04)
[2019-07-22] MEDS: SODIUM CHLORIDE 0.9 % (FLUSH) 10 ML DISP.SYRIN IV SCH (20:24)
[2019-07-22] MEDS ORDERED: SACUBITRIL PO SCH (21:00)
[2019-07-22] MEDS ORDERED: VALSARTAN PO SCH (21:00)
[2019-07-23 06:37] LABS: APPEARANCE,URINE CLEAR (CLEAR); COLOR,URINE YELLOW (YELLOW); OCCULT BLOOD,URINE TRACE (NEGATIVE)
[2019-07-23 06:38] LABS: PH URINE 6.5 (5.0 - 8.0); UROBILINOGEN URINE 0.2 Eu (0.2-1.0)
[2019-07-23] MEDS ORDERED: Non-Formulary 1 EACH PO SCH (09:00)
--- NOTE | 2019-07-23 09:05 | Diagnostic Imaging Report ---
PATIENT MR#: [id number] PATIENT PATIENT NAME: SUSU SANTANA DATE OF : 1930 REFERRING PHYSICIAN: Juwan Campos EXAM DATE: 07/23/2019 ACCESSION NUMBER: [id number] EXAM DESCRIPTION: CHEST 1VIEW 1 view of the chest History: ORDER STATES DYSPNEA; PT STATES SHORTNESS OF BREATH; HX OF THROAT CANCER; PT HAVING DIFFICUL TY HOLDING BREATH the Comparison: [id number] Cardiomegaly. Aortic calcification. A left chest pacemaker lead terminates in the right ventricle. El evated right hemidiaphragm. No focal lung consolidation. Right midlung and left basilar patchy opacities. Multilev el thoracic spine degenerative changes Impression: Cardiomegaly. Aortic calcification. Patchy infiltrate/atelectasis in the right midlung and left lower lobe. A small right pleural effusion may be present. Read by: Dr. Neelam Lewis Transcribed by: Transcribed Date: Electronically signed by: Dr. Neelam Lewis Date signed: 07/23/2019 9:04:26 AM
[2019-07-23 09:24] LABS: BASOPHILS % 0.3 % (0.0-1.5); NEUTROPHILS # 1.9 # k/uL (1.4-7.7); SEGMENTED NEUTROPHILS % 64 % (39-79)
[2019-07-23 09:25] LABS: eGFR (Non-African) > 60
[2019-07-23] MEDS: guaiFENesin 600 MG TAB.ER.12H PO SCH ×2 (09:29→20:57)
[2019-07-23] MEDS: POTASSIUM CHLORIDE 20 MEQ TABLET.ER PO SCH (09:29)
[2019-07-23] MEDS: SODIUM CHLORIDE 0.9 % (FLUSH) 10 ML DISP.SYRIN IV SCH ×2 (09:30→20:57)
[2019-07-23] MEDS ORDERED: LORazepam 0.5 MG TABLET PO PRN (11:01)
[2019-07-23] MEDS ORDERED: LORazepam 0.5 MG TABLET ONE (11:03)
[2019-07-23] MEDS: Non-Formulary 1 EACH INH SCH (12:12)
--- NOTE | 2019-07-23 18:17 | Inpatient Progress Note ---
Subjective - Required Recertification Statement I anticipate X number of days because-include discharge plan: 2 - Review of Systems Events since last encounter: Jerome's blood pressure continues to be very low. He feels very weak, but is not having any significant worsening of his chronic dyspnea. He is afebrile. General: Denies: Chills, Night Sweats HEENT: Denies: Head Aches Pulmonary: Dyspnea, Cough Cardiovascular: Denies: Chest Pain Gastrointestinal: Denies: Nausea, Vomiting Genitourinary: Denies: Dysuria, Other Musculoskeletal: Denies: Neck Pain, Shoulder Pain Neurological: Weakness. Denies: Change in Speech, Confusion, Seizures Objective - Exam Vitals and I&O: Vital Signs Temp 98 F 07/23/19 17:04 Pulse 82 07/23/19 17:12 Resp 20 07/23/19 17:11 BP 115/58 07/23/19 17:04 Pulse Ox 95 07/23/19 17:10 Intake & Output 07/22/19 07/23/19 07/23/19 23:59 11:59 23:59 Intake Total 234 960 9019 Output Total 600 275 100 Balance -920 615 9604 Weight 68.039 kg Intake: IV 3 Left Forearm 3 Oral 177 382 8649 Output: Urine 600 275 100 Other: Voiding Method Toilet Toilet Toilet # Voids 1 # Bowel Movements 0 General: Alert, Oriented to Person, Oriented to Place, Oriented to Time, Mild distress HEENT: Atraumatic, PERRLA, EOMI Neck: Supple, No JVD Lungs: Clear to auscultation, Prolonged Expiration, Decreased Air Movement. No: Respiratory Distress Cardiovascular: Regular rate Abdomen: Normal bowel sounds Extremities: No edema Skin: Normal, [place], Warm Neurological: Normal speech Psych/Mental Status: Mental status NL - Results Results: Laboratory Results WBC 3.20 K/ul (4.00-12.00) L 07/23/19 08:50 RBC 3.48 M/ul (3.90-5.20) L 07/23/19 08:50 Hgb 11.9 g/dL (12.0-18.0) L 07/23/19 08:50 Hct 34.3 % (37.0-53.0) L 07/23/19 08:50 MCV 99.0 fl (80.0-100.0) 07/23/19 08:50 MCH 34.1 pg (28.0-34.0) H 07/23/19 08:50 MCHC 34.6 g/dL (30.0-36.0) 07/23/19 08:50 RDW 11.4 % (11.3-14.3) 07/23/19 08:50 Plt Count 142 K/mm3 (130-400) 07/23/19 08:50 Neut % (Auto) 60.0 % (39.0-79.0) 07/23/19 08:50 Lymph % (Auto) 19.8 % (16.0-50.0) 07/23/19 08:50 [place] % (Auto) 14.2 % (0.0-11.0) H 07/23/19 08:50 Eos % (Auto) 5.7 % (0.0-6.8) 07/23/19 08:50 Baso % (Auto) 0.3 % (0.0-1.5) 07/23/19 08:50 Neut # (Auto) 1.9 # k/uL (1.4-7.7) 07/23/19 08:50 Lymph # (Auto) 0.6 # k/uL (0.6-4.0) 07/23/19 08:50 [place] # (Auto) 0.5 # k/uL (0.0-0.9) 07/23/19 08:50 Eos # (Auto) 0.2 # k/uL (0.0-0.6) 07/23/19 08:50 Baso # (Auto) 0.0 # k/uL (0.0-0.5) 07/23/19 08:50 Seg Neutrophils % 64 % (39-79) 07/23/19 08:50 Lymphocytes % 19 % (16-50) 07/23/19 08:50 Monocytes % 13 % (0-11) H 07/23/19 08:50 Eosinophils % 5 % (0-7) 07/23/19 08:50 Plt Morphology Comment Normal (NORMAL) 07/23/19 08:50 RBC Morph Comment Normal (NORMAL) 07/23/19 08:50 pH (7.35-7.45) 07/22/19 14:10 Sodium 140 mmol/L (137-145) 07/23/19 08:50 Potassium 3.6 mmol/L (3.5-5.1) 07/23/19 08:50 Chloride 98 mmol/L (98-107) 07/23/19 08:50 Carbon Dioxide 33 mmol/L (22-30) H 07/23/19 08:50 Anion Gap 12.6 07/23/19 08:50 BUN 17 mg/dL (9-20) 07/23/19 08:50 Creatinine 1.11 mg/dL (0.66-1.25) 07/23/19 08:50 Estimated Creat Clear 44 07/23/19 08:50 Est GFR ( Amer) > 60 (60-) 07/23/19 08:50 Est GFR (Non-Af Amer) > 60 (60-) 07/23/19 08:50 Glucose 114 mg/dL (74-106) H 07/23/19 08:50 Calcium 9.1 mg/dL (8.4-10.2) 07/23/19 08:50 Total Bilirubin 0.6 mg/dL (0.2-1.3) 07/23/19 08:50 AST 31 U/L (15-46) 07/23/19 08:50 ALT 12 U/L (0-50) 07/23/19 08:50 Alkaline Phosphatase 56 U/L (38-126) 07/23/19 08:50 NT-Pro-B Natriuret Pep 2204.3 pg/mL (15.0-450.0) H 07/23/19 08:50 Total Protein 6.4 g/dL (6.3-8.2) 07/23/19 08:50 Albumin 3.5 g/dL (3.5-5.0) 07/23/19 08:50 Urine Color Yellow (YELLOW) 07/22/19 11: Urine Appearance Clear (CLEAR) 07/22/19 11: Urine pH 6.5 (5.0 - 8.0) 07/22/19 11: Ur Specific [place] 1.020 (1.010-1.030) 07/22/19 11: Urine Protein Negative mg/dL (NEGATIVE) 07/22/19 11: Urine Ketones Negative mg/dL (NEGATIVE) 07/22/19 11:19 Urine Occult Blood Trace (NEGATIVE) 07/22/19 11:19 Urine Nitrite Negative (NEGATIVE) 07/22/19 11:19 Urine Bilirubin Negative (NEGATIVE) 07/22/19 11:19 Urine Urobilinogen 0.2 Eu (0.2-1.0) 07/22/19 11:19 Ur Leukocyte Esterase Negative (NEGATIVE) 07/22/19 11:19 Urine Glucose Negative mg/dL (NEGATIVE) 07/22/19 11:19 Assessment/Plan - Assessment/Plan (1) Congestive heart failure Status: Acute Current Visit: Yes Qualifiers: Heart failure type: unspecified Heart failure chronicity: acute on chronic Qualified Code(s): I50.9 - Heart failure, unspecified Assessment: Hold diuresis at this time due to soft blood pressures (2) Dyspnea Status: Acute Current Visit: Yes Qualifiers: Dyspnea type: acute respiratory distress Qualified Code(s): R06.03 - Acute respiratory distress Assessment: Multifactorial due to panlobular emphysema and CHF (3) Hypoxemia requiring supplemental oxygen Status: Acute Current Visit: Yes Assessment: Continue supplemental oxygen (4) Mantle cell lymphoma Status: Acute Current Visit: Yes Qualifiers: Lymphoma site: unspecified region Qualified Code(s): C83.10 - Mantle cell lymphoma, unspecified site Assessment: Treatment per oncology (5) CAD (coronary artery disease), [place] coronary artery Status: Acute Current Visit: Yes Qualifiers: [place] vs. transplanted heart: [place] heart Associated angina: without angina Qualified Code(s): I25.10 - Atherosclerotic heart disease of [place] coronary artery without angina pectoris Assessment: No evidence of current ischemia
[2019-07-23] MEDS: APIXABAN 5 MG TABLET PO SCH (20:57)
[2019-07-24 06:40] LABS: eGFR (Non-African) > 60
--- NOTE | 2019-07-24 07:06 | Diagnostic Imaging Report ---
PATIENT MR#: [id number] PATIENT PATIENT NAME: SUSU SANTANA DATE OF : 1930 REFERRING PHYSICIAN: Juwan Campos EXAM DATE: 07/24/2019 ACCESSION NUMBER: [id number] EXAM DESCRIPTION: CHEST 2VIEW The 2 views of the chest History: Dyspnea Comparison: July 23, 2019 Cardiomegaly. Aortic calcification. Left chest pacemaker lead in the right ventricle. Right basilar o pacity with blunting of the costophrenic angle. Elevated right hemidiaphragm. Minimal left basilar atelectasis. M ultilevel thoracic spine degenerative changes are present Impression: Cardiomegaly. Mild pulmonary vascular congestion. Elevated right hemidiaphragm with right basilar airspace disease, no significant interval change. Sma ll right pleural effusion. Minimal left basilar atelectasis. Read by: Dr. Neelam Lewis Transcribed by: Transcribed Date: Electronically signed by: Dr. Neelam Lewis Date signed: 07/24/2019 7:05:30 AM
[2019-07-24] MEDS: guaiFENesin 600 MG TAB.ER.12H PO SCH ×2 (08:31→21:15)
[2019-07-24] MEDS: POTASSIUM CHLORIDE 20 MEQ TABLET.ER PO SCH (08:31)
[2019-07-24] MEDS: SODIUM CHLORIDE 0.9 % (FLUSH) 10 ML DISP.SYRIN IV SCH ×2 (09:50→21:16)
[2019-07-24] MEDS ORDERED: BENZOCAINE/MENTHOL 1 EACH LOZENGE MM PRN (13:58)
--- NOTE | 2019-07-24 14:05 | Inpatient Progress Note ---
Subjective - Required Recertification Statement I anticipate X number of days because-include discharge plan: 2 - Review of Systems Events since last encounter: Jerome still has a very low blood pressure. He is not having any fever, but is coughing quite a bit. His cough is productive of clear sputum. He is able to ambulate around the unit fairly well. EKG today shows a paced rhythm, and his CXR shows no change. General: Fatigue. Denies: Chills, Night Sweats HEENT: Denies: Head Aches Pulmonary: Dyspnea, Cough Cardiovascular: Denies: Chest Pain, Palpitations Gastrointestinal: Denies: Nausea, Vomiting Genitourinary: Denies: Dysuria Musculoskeletal: Denies: Neck Pain, Shoulder Pain Neurological: Weakness. Denies: Confusion Objective - Exam Vitals and I&O: Vital Signs Temp 98.4 F 07/24/19 13:22 Pulse 65 07/24/19 13:22 Resp 18 07/24/19 13:22 BP 99/56 07/24/19 13:22 Pulse Ox 98 07/24/19 13:22 Intake & Output 07/23/19 07/24/19 07/24/19 23:59 11:59 23:59 Intake Total 1203 360 500 Output Total 100 1 Balance 1103 360 499 Intake: IV 3 Left Forearm 3 Oral 1200 360 500 Output: Urine 100 1 Other: Voiding Method Toilet Toilet # Voids 1 # Bowel Movements 0 0 0 General: Alert, Oriented to Person, Oriented to Place, Oriented to Time HEENT: Atraumatic, PERRLA, EOMI Neck: Supple, No JVD Lungs: Wheezes, Prolonged Expiration, Decreased Air Movement Cardiovascular: Regular rate Abdomen: Normal bowel sounds Extremities: No clubbing, No cyanosis, No edema Skin: Normal, [place], Warm Neurological: Normal gait, Normal speech Psych/Mental Status: Mental status NL - Results Results: Laboratory Results WBC 3.20 K/ul (4.00-12.00) L 07/23/19 08:50 RBC 3.48 M/ul (3.90-5.20) L 07/23/19 08:50 Hgb 11.9 g/dL (12.0-18.0) L 07/23/19 08:50 Hct 34.3 % (37.0-53.0) L 07/23/19 08:50 MCV 99.0 fl (80.0-100.0) 07/23/19 08:50 MCH 34.1 pg (28.0-34.0) H 07/23/19 08:50 MCHC 34.6 g/dL (30.0-36.0) 07/23/19 08:50 RDW 11.4 % (11.3-14.3) 07/23/19 08:50 Plt Count 142 K/mm3 (130-400) 07/23/19 08:50 Neut % (Auto) 60.0 % (39.0-79.0) 07/23/19 08:50 Lymph % (Auto) 19.8 % (16.0-50.0) 07/23/19 08:50 [place] % (Auto) 14.2 % (0.0-11.0) H 07/23/19 08:50 Eos % (Auto) 5.7 % (0.0-6.8) 07/23/19 08:50 Baso % (Auto) 0.3 % (0.0-1.5) 07/23/19 08:50 Neut # (Auto) 1.9 # k/uL (1.4-7.7) 07/23/19 08:50 Lymph # (Auto) 0.6 # k/uL (0.6-4.0) 07/23/19 08:50 [place] # (Auto) 0.5 # k/uL (0.0-0.9) 07/23/19 08:50 Eos # (Auto) 0.2 # k/uL (0.0-0.6) 07/23/19 08:50 Baso # (Auto) 0.0 # k/uL (0.0-0.5) 07/23/19 08:50 Seg Neutrophils % 64 % (39-79) 07/23/19 08:50 Lymphocytes % 19 % (16-50) 07/23/19 08:50 Monocytes % 13 % (0-11) H 07/23/19 08:50 Eosinophils % 5 % (0-7) 07/23/19 08:50 Plt Morphology Comment Normal (NORMAL) 07/23/19 08:50 RBC Morph Comment Normal (NORMAL) 07/23/19 08:50 pH (7.35-7.45) 07/22/19 14:10 Sodium 137 mmol/L (137-145) 07/24/19 05:49 Potassium 3.8 mmol/L (3.5-5.1) 07/24/19 05:49 Chloride 101 mmol/L (98-107) 07/24/19 05:49 Carbon Dioxide 29 mmol/L (22-30) 07/24/19 05:49 Anion Gap 10.8 07/24/19 05:49 BUN 18 mg/dL (9-20) 07/24/19 05:49 Creatinine 0.80 mg/dL (0.66-1.25) 07/24/19 05:49 Estimated Creat Clear 61 07/24/19 05:49 Est GFR ( Amer) > 60 (60-) 07/24/19 05:49 Est GFR (Non-Af Amer) > 60 (60-) 07/24/19 05:49 Glucose 89 mg/dL (74-106) 07/24/19 05:49 Calcium 8.5 mg/dL (8.4-10.2) 07/24/19 05:49 Total Bilirubin 0.5 mg/dL (0.2-1.3) 07/24/19 05:49 AST 20 U/L (15-46) 07/24/19 05:49 ALT 10 U/L (0-50) 07/24/19 05:49 Alkaline Phosphatase 55 U/L (38-126) 07/24/19 05:49 NT-Pro-B Natriuret Pep 2204.3 pg/mL (15.0-450.0) H 07/23/19 08:50 Total Protein 5.5 g/dL (6.3-8.2) L 07/24/19 05:49 Albumin 3.0 g/dL (3.5-5.0) L 07/24/19 05:49 Urine Color Yellow (YELLOW) 07/22/19 11: Urine Appearance Clear (CLEAR) 07/22/19 11: Urine pH 6.5 (5.0 - 8.0) 07/22/19 11:19 Ur Specific [place] 1.020 (1.010-1.030) 07/22/19 11:19 Urine Protein Negative mg/dL (NEGATIVE) 07/22/19 11:19 Urine Ketones Negative mg/dL (NEGATIVE) 07/22/19 11:19 Urine Occult Blood Trace (NEGATIVE) 07/22/19 11:19 Urine Nitrite Negative (NEGATIVE) 07/22/19 11:19 Urine Bilirubin Negative (NEGATIVE) 07/22/19 11:19 Urine Urobilinogen 0.2 Eu (0.2-1.0) 07/22/19 11:19 Ur Leukocyte Esterase Negative (NEGATIVE) 07/22/19 11:19 Urine Glucose Negative mg/dL (NEGATIVE) 07/22/19 11:19 Assessment/Plan - Assessment/Plan (1) Congestive heart failure Status: Acute Current Visit: Yes Qualifiers: Heart failure type: unspecified Heart failure chronicity: acute on chronic Qualified Code(s): I50.9 - Heart failure, unspecified Assessment: No evidence of fluid overload, but still markedly hypotensive. Plan: Continue to hold furosemide (2) Dyspnea Status: Acute Current Visit: Yes Qualifiers: Dyspnea type: acute respiratory distress Qualified Code(s): R06.03 - Acute respiratory distress Assessment: Multifactorial (3) Hypoxemia requiring supplemental oxygen Status: Acute Current Visit: Yes (4) Mantle cell lymphoma Status: Acute Current Visit: Yes Qualifiers: Lymphoma site: unspecified region Qualified Code(s): C83.10 - Mantle cell lymphoma, unspecified site (5) CAD (coronary artery disease), [place] coronary artery Status: Acute Current Visit: Yes Qualifiers: [place] vs. transplanted heart: [place] heart Associated angina: without angina Qualified Code(s): I25.10 - Atherosclerotic heart disease of [place] coronary artery without angina pectoris Assessment: No evidence of acute ischemia
[2019-07-24] MEDS: APIXABAN 5 MG TABLET PO SCH (21:15)
--- NOTE | 2019-07-25 06:05 | Discharge Summary ---
Discharge Summary - Discharge [facility] Admission Date: 07/22/19 Discharge Date: 07/25/19 Discharge To: Home History of Present Illness: This is an 89 year old male who brought his to the ER, and while there was noted to be very short of breath and tachypneic. He stated that he had been feeling a little weak since his last treatment for mantle cell cancer two weeks ago. He denies that he is having any chest pain. He has been afebrile, but has been coughing up quite a bit of sputum. Admitted as inpatient. Condition at Discharge: Stable Home Medications: Ambulatory Orders Medication Instructions Recorded Methotrexate Sodium [Methotrexate] 2.5 mg PO qthurs u2 04/17/18 Sacubitril/Valsartan [Entresto 24 1 each PO BID u2 04/17/18 mg-26 mg Tablet] Consultations this Visit: None Procedures this Visit: None Allergies/Adverse Reactions: Allergies Allergy/AdvReac Type Severity Reaction Status Date / Time No Known Allergies Allergy Verified 05/31/17 15:39 Patient Problems: Current Active Problems Problem Status Onset Atrial fibrillation Acute CAD (coronary artery disease), [place] coronary artery Acute Congestive heart failure Acute Dyspnea Acute Hypoxemia requiring supplemental oxygen Acute Mantle cell lymphoma Acute Discharge Summary: 89 year old male sitting in recliner this morning; A&Ox4; he states that he is ready to go home; He denies any SOA, CP or discomfort. He wants to be home for Thanksgiving - Final Diagnosis (1) Atrial fibrillation Problems: Stable Right or Left: Right (2) CAD (coronary artery disease), [place] coronary artery Problems: Stable Right or Left: Right (3) Congestive heart failure Problems: Blood pressures WNL Right or Left: Right (4) Dyspnea Problems: Stable Right or Left: Right (5) Gait disturbance Problems: Stable Right or Left: Right (6) Congestive heart failure Problems: Stable; no shortness of breath Right or Left: Right
[2019-07-25 09:11] VITALS: BP 97/56
[2019-07-25] MEDS: SODIUM CHLORIDE 0.9 % (FLUSH) 10 ML DISP.SYRIN IV SCH (09:19)
[2019-07-25] MEDS: POTASSIUM CHLORIDE 20 MEQ TABLET.ER PO SCH (09:19)
[2019-07-25] MEDS: guaiFENesin 600 MG TAB.ER.12H PO SCH (09:19)
== END 2019-07-25 10:45 | disposition home health service (06) | DRG 292 ==
LOC: ED 10:27 → SOUTH 14:05
PROVIDERS: ADMIT Family Medicine; ATTEND Family Medicine
DX: I50.9 Heart failure, unspecified (principal); C83.10 Mantle cell lymphoma, unspecified site; I48.11 Longstanding persistent atrial fibrillation; I25.10 Atherosclerotic heart disease of native coronary artery without angina pectoris; R09.02 Hypoxemia; R26.89 Other abnormalities of gait and mobility; I95.9 Hypotension, unspecified; M81.0 Age-related osteoporosis without current pathological fracture; N18.9 Chronic kidney disease, unspecified; J43.1 Panlobular emphysema; Z86.73 Personal history of transient ischemic attack (TIA), and cerebral infarction without residual deficits; Z79.899 Other long term (current) drug therapy; Z87.891 Personal history of nicotine dependence; Z90.49 Acquired absence of other specified parts of digestive tract; Z95.0 Presence of cardiac pacemaker
CPT/HCPCS: 36415; 36600; 71045; 71046; 71275; 80053; 81002; 82803; 83880; 85025; 93005; 99221; 99231; 99238; J1940; A9270; Q9967; S1016

== ENCOUNTER 2019-08-22 07:48 | Emergency (ER) | payer MEDICARE, OTHER ==
--- NOTE | 2019-08-22 08:05 | ED Physician Documentation ---
Fall - HISTORIAN Historian: paramedics, other ([facility]) - HPI Stated Complaint: fall/back pain Chief Complaint: Fall Additional Information: Patient presents [facility] ED via [facility] from [facility] after falling last night around 11:00. Patient lost his balance in the bathroom and fell back hitting his back on the door jamb. He was placed in a wheel chair and wheeled to the nurses station where he sat until he was transferred this morning at 0730. He did receive a oxycodone at 0100. PMHX; Atrial fibrillation, pacemaker, HTN, small bowel obstruction, FIRST MATE, Chronic diarrhea, mantle cell lymphoma. Patient is on Eliquis and has had 2 chemo treatments so far. Patient has abrasions, contusion and hematoma on right flank at the level of L1. Patient was given Fentanyl 100 mcg and Phenergan 12.5 IV in transport and arrive very sedated. Oxygen was administered, 3 liters via NC immediately. Onset: yesterday (2299) Where: other ([facility]) Context: lost balance r: severe Associated Symptoms:: no loss of consciousness Location of Pain/Injury: mid back, lower back Injury to Right Extremity: none Injury to Left Extremity: none - ROS CONST: no problems NEURO: denies: dizziness MS/SKIN/LYMPH: back pain. denies: weakness EYES/ENT: none CVS/RESP: none GI/: denies: nausea, vomiting - PAST HX Past History: none Allergies/Adverse Reactions: Allergies Allergy/AdvReac Type Severity Reaction Status Date / Time No Known Allergies Allergy Verified 08/22/19 08:03 Home Medications: Ambulatory Orders Medication Instructions Recorded Methotrexate Sodium [Methotrexate] 2.5 mg PO qthurs u2 04/17/18 Sacubitril/Valsartan [Entresto 24 1 each PO BID u2 04/17/18 mg-26 mg Tablet] - SOCIAL HX Smoking History: non-smoker Alcohol Use: none Drug Use: none - FAMILY HX Family History: none - VITAL SIGNS Vital Signs: Vital Signs Temp Pulse Resp BP Pulse Ox 97/56 07/25/19 09:11 - REVIEWED ASSESSMENTS Nursing Assessment Reviewed: Yes Vitals Reviewed: Yes Progress - Progress Progress: 1014 [facility]. Deferred to [facility] [address] Jung , [facility]. Agrees with transfer. ED Results Lab/Radiology - Radiology Radiology Impressions: Report Submission Date: Aug 22, 2019 9:20:16 AM [facility] Patient Study Name: SUSU SANTANA Date: Aug 22, 2019 8:18:37 AM SUSTAINABILITY PROJECT MANAGER Modality Type: CT\SR Gender: M Description: CT BRAIN W/O CONTRAST : 31 Institution: [facility] Physician: ADEN SCHOFIELD HISTORY: 89-year-old fell last night. COMPARISON: CT scan dated 05/31/2017. TECHNIQUE: Noncontrast axial CT images of the head were performed. Sagittal and coronal reformatted images were obtained. FINDINGS: There is mild global brain atrophy. There is mild decreased attenuation in the periventricular white matter. 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 There are thick atherosclerotic calcifications of the intracranial ICAs. No intracranial hemorrhage, mass, midline shift, hydrocephalus, or evidence of acute large vessel infarct. The mastoid air cells and middle ear spaces are clear. There is fluid in the bilateral maxillary sinuses. No cranial fracture or scalp edema. IMPRESSION: 1. Global brain atrophy and chronic ischemic changes. 2. No evidence of acute infarct, intracranial hemorrhage, or other acute intracranial process. 3. Bilateral maxillary sinus disease. Electronically signed on Aug 22, 2019 9:20:16 AM [facility] by: Pepito Leone Report Submission Date: Aug 22, 2019 9:25:51 AM [facility] Patient Study Name: SUSU SANTANA Date: Aug 22, 2019 8:25:13 AM SUSTAINABILITY PROJECT MANAGER Modality Type: CT\SR Gender: M Description: CT T-SPINE W/O CONTRAS : 31 Institution: [facility] Physician: ADEN SCHOFIELD HISTORY: 89-year-old fell last night. COMPARISON: None available. TECHNIQUE: Noncontrast axial CT images of the thoracic spine were performed. Sagittal and coronal reformatted images were obtained. Sagittal images were performed with soft tissue algorithm instead of the appropriate bone algorithm. IMPRESSION: 1. T12 burst fracture with mild loss of height and 3 mm retropulsion of fragments. This fracture may be acute, subacute, or chronic. 2. No other fractures are identified throughout the thoracic spine. 3. 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 There are also bridging calcifications along the supraspinous ligament. Does the the patient have a history of ankylosing spondylitis? 4. No high-grade central canal stenosis at any level in the thoracic spine. 5. Moderate right and small left pleural effusions. Electronically signed on Aug 22, 2019 9:25:51 AM SUSTAIN[employer] PROJECT MANAGER by: Pepito Leone Report Submission Date: Aug 22, 2019 9:22:34 AM [employer] PROJECT MANAGER Patient Study Name: SUSU SANTANA Date: Aug 22, 2019 8:33:13 AM SUSTAINABILITY PROJECT MANAGER Modality Type: CT\SR Gender: M Description: CT L-SPINE W/O CONTRAS : 31 Institution: [facility] Physician: ADEN SCHOFIELD HISTORY: 89-year-old fell last night. COMPARISON: None available. TECHNIQUE: Noncontrast axial CT images of the lumbar spine were performed. Sagittal and coronal reformatted images were obtained. IMPRESSION: 1. T12 burst fracture with 10% loss of height anteriorly, 30% loss of height centrally, and 3 mm retropulsion of fragments. This fracture may be acute, subacute, or chronic. 2. No fractures are identified in the lumbar spine. 3. Degenerative disc disease and facet arthropathy with significant neural foraminal stenosis on the right at L3-L4 and L5-S1; and on the left at L5-S1. 4. Extensive atherosclerotic calcifications in the abdominal aorta and major branches. Report Submission Date: Aug 22, 2019 9:28:43 AM [employer] PROJECT MANAGER Patient Study Name: SUSU SANTANA Date: Aug 22, 2019 8:20:47 AM SUSTAINABILITY PROJECT MANAGER Modality Type: CT\SR Gender: M Description: CT C-SPINE W/O CONTRAS : 31 Institution: [facility] Physician: ADEN SCHOFIELD HISTORY: 89-year-old fell last night. COMPARISON: None available. TECHNIQUE: Noncontrast axial CT images of the cervical spine were performed. Sagittal and coronal reformatted images were obtained. IMPRESSION: 1. No fracture of the cervical spine. 2. Advanced cervical degenerative disc disease and facet arthropathy without high-grade central canal stenosis at any level in the cervical spine. 3. Significant neural foraminal stenosis at C4-C5 on the right; C5-C6 on the right; C6-C7 bilaterally. 4. Thick atherosclerotic calcifications of the bilateral carotid bulbs. 5. Fluid in the dependent portions of the maxillary sinuses, slightly greater on the right. Electronically signed on Aug 22, 2019 9:28:43 AM SUSTAINABILITY PROJECT MANAGER by: Pepito Leone - Orders Orders: ED Orders Category Date Time Status CBC/PLATELET/DIFF Routine Lab 08/22/19 Ordered CMP [CMP] Routine Lab 08/22/19 Ordered Oxygen Daily Oxygen 08/22/19 08:00 Ordered Fall Physical Exam - Physical Exam General Appearance: no acute distress, alert. 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 distress, heart sounds nml Abdomen: soft, normal bowel sounds, no distension Neuro: other (sedated) Skin: color nml Back: other (5 cm abrasion, contusion, hematoma right flank at level of L1 just lateral to spine) Extremities: atraumatic - Meredith Coma Score Eyes Open: Spontaneous Speech: Oriented Motor: Obeys Commands Discharge Clincal Impression: T12 burst fracture, Anticoagulant long-term use Referrals: Álvaro Cruz MD [Primary Care Provider] - 2 Days Comments: Will transfer to [facility] under the care of Dr. Jung. Condition: Stable Disposition: 02 XFER SHT-TRM HOSP Decision to Admit: NO Date of Decison to Admit: 08/22/19 Decision Time: 10:27
[2019-08-22 08:33] LABS: BASOPHILS % 0.5 % (0.0-1.5); NEUTROPHILS # 3.7 # k/uL (1.4-7.7)
[2019-08-22 08:43] LABS: eGFR (Non-African) > 60
[2019-08-22] MEDS ORDERED: fentaNYL CITRATE/PF 100 MCG/2 ML INJ. IV ONE (08:53)
--- NOTE | 2019-08-22 09:26 | Diagnostic Imaging Report ---
PATIENT MR#: [id number] PATIENT PATIENT NAME: SUSU SANTANA DATE OF : 1930 REFERRING PHYSICIAN: Kat De Jesus EXAM DATE: 08/22/2019 ACCESSION NUMBER: [id number] EXAM DESCRIPTION: CT BRAIN W/O CONTRAST HISTORY: 89-year-old fell last night. COMPARISON: CT scan dated 05/31/2017. TECHNIQUE: Noncontrast axial CT images of the head were performed. Sagittal and coronal reformatted images were obtained. FINDINGS: There is mild global brain atrophy. There is mild decreased attenuation in the periventri cular white matter. 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 There are thick a therosclerotic calcifications of the intracranial ICAs. No intracranial hemorrhage, mass, midline shift, hydrocepha felipe, or evidence of acute large vessel infarct. The mastoid air cells and middle ear spaces are clear. There is fluid i n the bilateral maxillary sinuses. No cranial fracture or scalp edema. IMPRESSION: 1. Global brain atrophy and chronic ischemic changes. 2. No evidence of acute infarct, intracranial hemorrhage, or other acute intracranial process. 3. Bilateral maxillary sinus disease. Read by: Dr. Pepito Leone Transcribed by: Transcribed Date: Electronically signed by: Dr. Pepito Leone Date signed: 08/22/2019 9:25:02 AM
--- NOTE | 2019-08-22 09:27 | Diagnostic Imaging Report ---
PATIENT MR#: [id number] PATIENT PATIENT NAME: SUSU SANTANA DATE OF : 1930 REFERRING PHYSICIAN: Kat De Jesus EXAM DATE: 08/22/2019 ACCESSION NUMBER: [id number] EXAM DESCRIPTION: CT L-SPINE W/O CONTRAS HISTORY: 89-year-old fell last night. COMPARISON: None available. TECHNIQUE: Noncontrast axial CT images of the lumbar spine were performed. Sagittal and coronal refo rmatted images were obtained. IMPRESSION: 1. T12 burst fracture with 10% loss of height anteriorly, 30% loss of height centrally, and 3 mm ret ropulsion of fragments. This fracture may be acute, subacute, or chronic. 2. No fractures are identified in the lumbar spine. 3. Degenerative disc disease and facet arthropathy with significant neural foraminal stenosis on the right at L3-L4 and L5-S1; and on the left at L5-S1. 4. Extensive atherosclerotic calcifications in the abdominal aorta and major branches. Read by: Dr. Pepito Leone Transcribed by: Transcribed Date: Electronically signed by: Dr. Pepito Leone Date signed: 08/22/2019 9:27:02 AM
--- NOTE | 2019-08-22 09:30 | Diagnostic Imaging Report ---
PATIENT MR#: [id number] PATIENT PATIENT NAME: SUSU SANTANA DATE OF : 1930 REFERRING PHYSICIAN: Kat De Jesus EXAM DATE: 08/22/2019 ACCESSION NUMBER: [id number] EXAM DESCRIPTION: CT T-SPINE W/O CONTRAS HISTORY: 89-year-old fell last night. COMPARISON: None available. TECHNIQUE: Noncontrast axial CT images of the thoracic spine were performed. Sagittal and coronal r eformatted images were obtained. Sagittal images were performed with soft tissue algorithm instead of the appropriate bone algorithm. IMPRESSION: 1. T12 burst fracture with mild loss of height and 3 mm retropulsion of fragments. This fracture ma y be acute, subacute, or chronic. 2. No other fractures are identified throughout the thoracic spine. 3. 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 There are also bridgin g calcifications along the supraspinous ligament. Does the the patient have a history of ankylosing spondylitis? 4. No high-grade central canal stenosis at any level in the thoracic spine. 5. Moderate right and small left pleural effusions. Read by: Dr. Pepito Leone Transcribed by: Transcribed Date: Electronically signed by: Dr. Pepito Leone Date signed: 08/22/2019 9:30:02 AM
--- NOTE | 2019-08-22 09:34 | Diagnostic Imaging Report ---
PATIENT MR#: [id number] PATIENT PATIENT NAME: SUSU SANTANA DATE OF : 1930 REFERRING PHYSICIAN: Kat De Jesus EXAM DATE: 08/22/2019 ACCESSION NUMBER: [id number] EXAM DESCRIPTION: CT C-SPINE W/O CONTRAS HISTORY: 89-year-old fell last night. COMPARISON: None available. TECHNIQUE: Noncontrast axial CT images of the cervical spine were performed. Sagittal and coronal re formatted images were obtained. IMPRESSION: 1. No fracture of the cervical spine. 2. Advanced cervical degenerative disc disease and facet arthropathy without high-grade central felisha l stenosis at any level in the cervical spine. 3. Significant neural foraminal stenosis at C4-C5 on the right; C5-C6 on the right; C6-C7 bilaterall y. 4. Thick atherosclerotic calcifications of the bilateral carotid bulbs. 5. Fluid in the dependent portions of the maxillary sinuses, slightly greater on the right. Read by: Dr. Pepito Leone Transcribed by: Transcribed Date: Electronically signed by: Dr. Pepito Leone Date signed: 08/22/2019 9:33:02 AM
[2019-08-22 11:10] VITALS: BP 101/56
== END 2019-08-22 10:49 | disposition short-term general hospital (02) ==
LOC: ED 07:48
DX: Z51.81 Encounter for therapeutic drug level monitoring (principal); S22.081A Stable burst fracture of T11-T12 vertebra, initial encounter for closed fracture; Z79.01 Long term (current) use of anticoagulants; W01.198A Fall on same level from slipping, tripping and stumbling with subsequent striking against other object, initial encounter; Y92.121 Bathroom in nursing home as the place of occurrence of the external cause
CPT/HCPCS: 36415; 70450; 72125; 72128; 72131; 80053; 85025; 96374; 99282; 99284; J3010

== ENCOUNTER 2019-08-30 19:44 | Outpatient (CLI) | payer MEDICARE, OTHER ==
[2019-08-30 20:02] LABS: eGFR (Non-African) > 60
== END 2019-08-30 19:49 ==
LOC: LAB 19:44
PROVIDERS: ATTEND Family Medicine
DX: I25.9 Chronic ischemic heart disease, unspecified (principal); R55 Syncope and collapse
CPT/HCPCS: 80048